=== PATIENT | male | born 1955 | race Caucasian/White ===

== ENCOUNTER 2019-01-18 23:42 | Emergency (ER) | payer SELFPAY ==
[2019-01-19] MEDS ORDERED: NA CHLORIDE 0.9% 1,000 ML ONE ×2 (00:11→04:29)
[2019-01-19 00:33] LABS: Absolute Lymphocytes (CBC) 2.9 K/uL (0.7-4.9); Absolute Neutrophil 7.4 K/uL (1.8-8.0); Basophils % 0.5 % (0-1.3); Eosinophils % 0.6 % (0-4.4); Lymphocytes % 25.6 % (15.3-44.8); MPV 8.8 fL (7.6-11.3); Monocytes % 8.4 % (3.3-12.3); RBC Red Blood Cell Count 5.97 M/uL (4.33-5.43)
[2019-01-19 00:40] LABS: Potassium 3.8 mmol/L (3.5-5.1)
[2019-01-19 01:41] LABS: Blood Morphology Comment NOTED (NOT SEEN); Hypochromasia 2+; Platelet Estimate ADEQ; Urine White Blood Cell Casts OK
[2019-01-19] MEDS ORDERED: LIDOCAINE 2% MPF 5 ML VIAL ONE (03:01)
[2019-01-19] MEDS ORDERED: ACETAMINOPHEN 325 MG TABLET ONE (04:29)
--- NOTE | 2019-01-19 07:26 | ER ---
Nurse's Notes [facility] Name: Sidney Calle Age: 63 yrs Sex: Male : 1955 Arrival Date: 01/18/2019 Time: 23:45 Bed 3 Private MD: Diagnosis: Abrasion of other part of head;Toxic effect of alcohol Presentation: 01/18 23:45 Presenting complaint: EMS states: Patient was drinking and felt on his right side. EMS ao notice a large hematoma in the right side. Patient was positive to LOC and denies blood thinner. Pt refused a collar by EMS. Care prior to arrival: None. Mechanism of Injury: Fall from standing position. Trauma event details: Injury occurred in the [facility]. 23:45 Method Of Arrival: EMS: [facility] ao 23:45 Acuity: GAVIN 2 ao 23:55 Transition of care: patient was not received from another setting of care. Onset of ao symptoms is unknown. Risk Assessment: Do you want to hurt yourself or someone else? Patient reports no desire to harm self or others. Initial Sepsis Screen: Does the patient meet any 2 criteria? No. Patient's initial sepsis screen is negative. Does the patient have a suspected source of infection? No. Patient's initial sepsis screen is negative. Trauma Activation: Physician: ED Physician; Name: Deandra; Notified At: ; Arrived At: Physician: General Surgeon; Name: ; Notified At: ; Arrived At: Physician: Radiology; Name: Kanika; Notified At: ; Arrived At: Physician: Respiratory; Name: ; Notified At: ; Arrived At: Physician: Lab; Name: ; Notified At: ; Arrived At: Historical: - Allergies: 23:52 No Known Allergies; ao - Home Meds: 23:52 None [Active]; ao - PMHx: 23:52 Hypertension; Bipolar disorder; ao - PSHx: 23:52 None; ao - Immunization history:: Adult Immunizations up to date. - Social history:: Smoking status: Patient uses tobacco products, denies chronic smoking, but will smoke occasionally, Patient uses alcohol, on a daily basis. Patient/guardian denies using street drugs, IV drugs. - Immunization history: Last tetanus immunization: unknown. - Ebola Screening: : Patient negative for fever greater than or equal to 101.5 degrees Fahrenheit, and additional compatible Ebola Virus Disease symptoms Patient denies exposure to infectious person Patient denies travel to an Ebola-affected area in the 21 days before illness onset. Screenin:54 Abuse screen: Denies threats or abuse. Denies injuries from another. Nutritional ao screening: No deficits noted. Tuberculosis screening: No symptoms or risk factors identified. Fall Risk Fall in past 12 months (25 points). No secondary diagnosis (0 pts). No IV (0 pts). Ambulatory Aid- None/Bed Rest/Nurse Assist (0 pts). Gait- Weak (10 pts.). Mental Status- Overestimates/Forgets Limitations (15 pts.). Primary Survey: 23:49 NO uncontrolled hemorrhage observed. A: The patient is alert. Airway: patent, No jd3 supplemental oxygen in use on arrival. Breathing/Chest: Respiratory pattern: regular, Respiratory effort: spontaneous, Breath sounds: clear, bilaterally. Chest inspection: symmetrical rise and fall of the chest. Circulation: Heart tones present. Skin color: pink, Skin temperature: warm. Disability Alert. Exposure/Environment: There is no evidence of uncontrolled external bleeding. Obvious injury(ies) are noted at this time: hematoma noted to top of head and abrasion noted to right elbow. A warming method has been applied: A warm blanket has been provided to the patient. 23:55 Reassessment Airway Airway Patent Breathing/Chest Respiratory pattern Regular ao Circulation Heart rhythm Sinus rhythm Disability Verbal stimuli. Secondary Survey: 23:52 HEENT: Head Other hematoma noted to top of head with dried blood noted. jd3 Gastrointestinal: No deficits noted. : No signs and/or symptoms were reported regarding the genitourinary system. Musculoskeletal: Circulation, motion, and sensation intact. Assessment: 23:55 General: Appears uncomfortable, Behavior is cooperative, drowsy, Smells of alcohol. jd3 Pain: Complains of pain in head Quality of pain is described as aching, tender. Neuro: Level of Consciousness is awake, confused, Oriented to person, place. Cardiovascular: Heart tones S1 S2 present Capillary refill < 3 seconds Patient's skin is warm and dry. Respiratory: Airway is patent Respiratory effort is even, unlabored, Respiratory pattern is regular, symmetrical, Breath sounds are clear bilaterally. GI: No signs and/or symptoms were reported involving the gastrointestinal system. : No signs and/or symptoms were reported regarding the genitourinary system. EENT: No signs and/or symptoms were reported regarding the EENT system. Derm: Skin is intact, Skin is dry, Skin is normal, Skin temperature is warm. Musculoskeletal: Circulation, motion, and sensation intact. 01/19 00:28 Reassessment: No changes from previously documented assessment. Patient and/or family jd3 updated on plan of care and expected duration. Pain level reassessed. 01:53 Reassessment: Patient appears in no apparent distress at this time. No changes from jd3 previously documented assessment. Patient and/or family updated on plan of care and expected duration. Pain level reassessed. 02:30 Reassessment: Patient appears in no apparent distress at this time. No changes from jd3 previously documented assessment. Patient and/or family updated on plan of care and expected duration. Pain level reassessed. 03:20 Reassessment: Patient appears in no apparent distress at this time. No changes from jd3 previously documented assessment. Patient and/or family updated on plan of care and expected duration. Pain level reassessed. 03:54 Reassessment: awaiting providers instruction and disposition. jd3 04:26 Reassessment: Patient appears in no apparent distress at this time. No changes from jd3 previously documented assessment. Patient and/or family updated on plan of care and expected duration. Pain level reassessed. Patient is alert, oriented x 3, equal unlabored respirations, skin warm/dry/pink. 05:29 Reassessment: Patient appears in no apparent distress at this time. Patient and/or jd3 family updated on plan of care and expected duration. Pain level reassessed. Patient is alert, oriented x 3, equal unlabored respirations, skin warm/dry/pink. 06:03 Reassessment: Patient appears in no apparent distress at this time. Patient and/or jd3 family updated on plan of care and expected duration. Pain level reassessed. Patient is alert, oriented x 3, equal unlabored respirations, skin warm/dry/pink. pt resting with eyes closed, even and unlabored respirations. awaiting orders and disposition. 06:53 Reassessment: Patient appears in no apparent distress at this time. No changes from jd3 previously documented assessment. Patient and/or family updated on plan of care and expected duration. Pain level reassessed. Patient is alert, oriented x 3, equal unlabored respirations, skin warm/dry/pink. 07:10 General: Appears in no apparent distress. comfortable, Behavior is calm, cooperative. sv Pain: Denies pain. Neuro: Level of Consciousness is awake, alert, obeys commands, Oriented to person, place, time, situation. Respiratory: Respiratory effort is even, unlabored, Respiratory pattern is regular, symmetrical. Injury Description: Abrasion sustained to right frontal area is scabbed. 07:28 Reassessment: Pt ambulatory with no distress noted. sv 07:36 Reassessment: Called and spoke with Missy at [phone] that pt is ready to be sv discharged. She will be coming to pick him up. Vital Signs: 01/18 23:52 BP 140 / 85; Pulse 91; Resp 18; Temp 98.2(O); Pulse Ox 95% on R/A; Weight 86.18 kg; ao Height 5 ft. 2 in. (157.48 cm); 01/19 00:28 BP 138 / 81; Pulse 81; Resp 17 S; Pulse Ox 95% on R/A; jd3 01:00 BP 156 / 85; Pulse 77; Resp 17 S; Pulse Ox 95% on R/A; jd3 02:18 BP 138 / 81; Pulse 84; Resp 16 S; Pulse Ox 95% on R/A; jd3 03:20 BP 153 / 84; Pulse 74; Resp 16 S; Pulse Ox 96% on R/A; jd3 04:26 BP 132 / 75; Pulse 70; Resp 16 S; Pulse Ox 95% on R/A; jd3 05:29 BP 142 / 77; Pulse 68; Resp 18 S; Pulse Ox 95% on R/A; jd3 06:04 BP 172 / 69; Pulse 68; Resp 15 S; Pulse Ox 95% on R/A; jd3 06:53 BP 136 / 70; Pulse 66; Resp 17 S; Pulse Ox 95% on R/A; jd3 07:18 BP 146 / 83; Pulse 72; Resp 16; Pulse Ox 96% ; Pain 0/10; sv 01/18 23:52 Body Mass Index 34.75 (86.18 kg, 157.48 cm) ao Estela Coma Score: 01/18 23:54 Eye Response: spontaneous(4). Verbal Response: confused(4). Motor Response: localizes ao pain(5). Total: 13. Trauma Score (Adult): 23:54 Eye Response: to voice(0); Verbal Response: confused(1); Motor Response: obeys ao commands(2); Systolic BP: > 89 mm Hg(4); Respiratory Rate: 10 to 29 per min(4); Estela Score: 13; Trauma Score: 11 ED Course: 23:45 Patient arrived in ED. ao 23:48 Andrea Schulz RN is Primary Nurse. jd3 23:51 Triage completed. ao 23:52 Sidney Liriano MD is Attending Physician. gs 23:55 Arm band placed on right wrist. Patient placed in an exam room, on a stretcher, on ao pulse oximetry. 23:56 Patient has correct armband on for positive identification. Pulse ox on. NIBP on. ao 23:56 Patient maintains SpO2 saturation greater than 95% on room air. ao 23:56 Thermoregulation: warm blanket given to patient. ao 03/09 00:[address] via stretcher. kw1 00:18 CT Head C Spine In Process Unspecified. EDMS 00:25 Inserted saline lock: 20 gauge in left forearm, using aseptic technique. Blood ao collected. 07:04 Report given to Roseann NGUYEN. jd3 07:20 Primary Nurse role handed off by Andrea Schulz RN sv 07:20 Roseann Naranjo RN is Primary Nurse. sv 07:48 No provider procedures requiring assistance completed. IV discontinued, intact, sv bleeding controlled, No redness/swelling at site. Pressure dressing applied. Administered Medications: 00:22 Drug: NS 0.9% 1000 ml Route: IV; Rate: 1 bolus; Site: left forearm; ao 04:25 Follow up: Response: No adverse reaction; IV Status: Completed infusion jd3 04:25 Drug: Tylenol 650 mg Route: PO; jd3 05:25 Follow up: Response: No adverse reaction jd3 04:25 Drug: NS 0.9% 1000 ml Route: IV; Rate: 1 bolus; Site: left antecubital; jd3 05:55 Follow up: Response: No adverse reaction; IV Status: Completed infusion jd3 07:30 Not Given (Physician Discretion): Lidocaine (2 %) 5 mg Infiltration once sv Intake: 07:28 PO: 0ml; Total: 0ml. sv Output: 07:28 Urine: 400ml (Voided); Total: 400ml. sv Outcome: 07:25 Discharge ordered by . rachel 07:49 Patient's length of stay in the Emergency Department was greater than 2 hours. due to sv pt not being discharged d/t intoxication.Patient's length of stay extended due to 07:56 Discharged to home via wheelchair, with family, Missy here to take him home. sv 07:56 Condition: stable 07:56 Discharge instructions given to patient, Instructed on discharge instructions, follow up and referral plans. Demonstrated understanding of instructions, follow-up care. 07:57 Patient left the ED. sv Signatures: Dispatcher [employer] Roseann Blanton RN RN sv Ortiz, Alex, RN RN ao Starr, Gregory, MD MD gs Davies, Jonathon RN RN Mine Pantoja1 Corrections: (The following items were deleted from the chart) 00:05 03/08 23:45 Acuity: GAVIN 3 ao ao
--- NOTE | 2019-01-19 07:26 | EDPHYS ---
Physician Documentation [facility] Name: Sidney Calle Age: 63 yrs Sex: Male : 1955 Arrival Date: 01/18/2019 Time: 23:45 Bed 3 Private MD: ED Physician Sidney Liriano HPI: 01/19 05:44 This 63 yrs old Male presents to ER via EMS with complaints of Fall Injury. gs 05:44 Details of fall: The patient fell from an upright position, while standing. Onset: The gs symptoms/episode began/occurred acutely, just prior to arrival. Associated injuries: The patient sustained injury to the head, laceration, 0.5 cm(s). Severity of symptoms: At their worst the symptoms were moderate, in the emergency department the symptoms are unchanged. The patient has experienced similar episodes in the past, a few times. recently out of assisted heavy drinking tonite passed out hit head currently intoxicated. Historical: - Allergies: 01/18 23:52 No Known Allergies; ao - Home Meds: 23:52 None [Active]; ao - PMHx: 23:52 Hypertension; Bipolar disorder; ao - PSHx: 23:52 None; ao - Immunization history:: Adult Immunizations up to date. - Social history:: Smoking status: Patient uses tobacco products, denies chronic smoking, but will smoke occasionally, Patient uses alcohol, on a daily basis. Patient/guardian denies using street drugs, IV drugs. - Immunization history: Last tetanus immunization: unknown. - Ebola Screening: : Patient negative for fever greater than or equal to 101.5 degrees Fahrenheit, and additional compatible Ebola Virus Disease symptoms Patient denies exposure to infectious person Patient denies travel to an Ebola-affected area in the 21 days before illness onset. ROS: 01/19 05:44 All other systems are negative. gs Exam: 05:44 Eyes: Pupils equal round and reactive to light, extra-ocular motions intact. Lids and gs lashes normal. Conjunctiva and sclera are non-icteric and not injected. Cornea within normal limits. Periorbital areas with no swelling, redness, or edema. ENT: Nares patent. No nasal discharge, no septal abnormalities noted. Tympanic membranes are normal and external auditory canals are clear. Oropharynx with no redness, swelling, or masses, exudates, or evidence of obstruction, uvula midline. Mucous membranes moist. Neck: Trachea midline, no thyromegaly or masses palpated, and no cervical lymphadenopathy. Supple, full range of motion without nuchal rigidity, or vertebral point tenderness. No Meningismus. Chest/axilla: Normal chest wall appearance and motion. Nontender with no deformity. No lesions are appreciated. Cardiovascular: Regular rate and rhythm with a normal S1 and S2. No gallops, murmurs, or rubs. Normal PMI, no JVD. No pulse deficits. Respiratory: Lungs have equal breath sounds bilaterally, clear to auscultation and percussion. No rales, rhonchi or wheezes noted. No increased work of breathing, no retractions or nasal flaring. Abdomen/GI: Soft, non-tender, with normal bowel sounds. No distension or tympany. No guarding or rebound. No evidence of tenderness throughout. Back: No spinal tenderness. No costovertebral tenderness. Full range of motion. Skin: Warm, dry with normal turgor. Normal color with no rashes, no lesions, and no evidence of cellulitis. MS/ Extremity: Pulses equal, no cyanosis. Neurovascular intact. Full, normal range of motion. Neuro: Awake and alert, GCS 15, oriented to person, place, time, and situation. Cranial nerves II-XII grossly intact. Motor strength 5/5 in all extremities. Sensory grossly intact. Cerebellar exam normal. Normal gait. 05:44 Constitutional: The patient appears awake, smells of alcohol, ETOH. 05:44 Head/face: Noted is a laceration(s), that is superficial, 0.5 cm(s), of the right temporal area. Vital Signs: 01/18 23:52 BP 140 / 85; Pulse 91; Resp 18; Temp 98.2(O); Pulse Ox 95% on R/A; Weight 86.18 kg; ao Height 5 ft. 2 in. (157.48 cm); 01/19 00:28 BP 138 / 81; Pulse 81; Resp 17 S; Pulse Ox 95% on R/A; jd3 01:00 BP 156 / 85; Pulse 77; Resp 17 S; Pulse Ox 95% on R/A; jd3 02:18 BP 138 / 81; Pulse 84; Resp 16 S; Pulse Ox 95% on R/A; jd3 03:20 BP 153 / 84; Pulse 74; Resp 16 S; Pulse Ox 96% on R/A; jd3 04:26 BP 132 / 75; Pulse 70; Resp 16 S; Pulse Ox 95% on R/A; jd3 05:29 BP 142 / 77; Pulse 68; Resp 18 S; Pulse Ox 95% on R/A; jd3 06:04 BP 172 / 69; Pulse 68; Resp 15 S; Pulse Ox 95% on R/A; jd3 06:53 BP 136 / 70; Pulse 66; Resp 17 S; Pulse Ox 95% on R/A; jd3 07:18 BP 146 / 83; Pulse 72; Resp 16; Pulse Ox 96% ; Pain 0/10; sv 01/18 23:52 Body Mass Index 34.75 (86.18 kg, 157.48 cm) ao Bylas Coma Score: 01/18 23:54 Eye Response: spontaneous(4). Verbal Response: confused(4). Motor Response: localizes ao pain(5). Total: 13. Trauma Score (Adult): 23:54 Eye Response: to voice(0); Verbal Response: confused(1); Motor Response: obeys ao commands(2); Systolic BP: > 89 mm Hg(4); Respiratory Rate: 10 to 29 per min(4); Estela Score: 13; Trauma Score: 11 MDM: 23:52 Patient medically screened. 01/19 07:24 Differential diagnosis: abrasion, closed head injury, laceration. Data reviewed: vital gs signs, nurses notes. Counseling: I had a detailed discussion with the patient and/or guardian regarding: the historical points, exam findings, and any diagnostic results supporting the discharge/admit diagnosis, the need for outpatient follow up. Response to treatment: the patient's symptoms have markedly improved after treatment, and as a result, I will discharge patient. 01/18 23:53 Order name: CBC with Diff; Complete Time: 02:09 01/18 23:53 Order name: Basic Metabolic Panel; Complete Time: 02: 01/18 23:53 Order name: CT Head C Spine 01/18 23:53 Order name: Alcohol Level; Complete Time: 02:09 01/19 01:22 Order name: CBC Smear Scan; Complete Time: 02:09 EDMS Administered Medications: 00:22 Drug: NS 0.9% 1000 ml Route: IV; Rate: 1 bolus; Site: left forearm; ao 04:25 Follow up: Response: No adverse reaction; IV Status: Completed infusion jd3 04:25 Drug: Tylenol 650 mg Route: PO; jd3 05:25 Follow up: Response: No adverse reaction jd3 04:25 Drug: NS 0.9% 1000 ml Route: IV; Rate: 1 bolus; Site: left antecubital; jd3 05:55 Follow up: Response: No adverse reaction; IV Status: Completed infusion jd3 07:30 Not Given (Physician Discretion): Lidocaine (2 %) 5 mg Infiltration once sv Disposition: 01/19/19 07:25 Discharged to Home. Impression: Abrasion of other part of head, Toxic effect of alcohol. - Condition is Stable. - Discharge Instructions: Alcohol Intoxication, Contusion, Abrasion, [id number]. - Medication Reconciliation Form, Thank You Letter, Antibiotic Education, Prescription Opioid Use form. - Follow up: Private Physician; When: 2 - 3 days; Reason: Re-evaluation by your physician. Signatures: Dispatcher [employer] Roseann Blanton RN RN sv Ortiz, Alex, RN RN ao Starr, Gregory, MD MD gs Davies, Jonathon, RN RN jd3 Corrections: (The following items were deleted from the chart) 07:57 07:25 01/19/2019 07:25 Discharged to Home. Impression: Abrasion of other part of head; sv Toxic effect of alcohol. Condition is Stable. Forms are Medication Reconciliation Form, Thank You Letter, Antibiotic Education, Prescription Opioid Use. Follow up: Private Physician; When: 2 - 3 days; Reason: Re-evaluation by your physician. gs
[2019-01-19 08:09] VITALS: TEMP 98.2
[2019-01-19 08:22] VITALS: BP 146/83; O2SAT 96
--- NOTE | 2019-01-21 11:17 | RAD REPORT ---
EXAM DESCRIPTION: CT - Head C Spine Mpr Wo Con - 01/19/2019 1:54 am CLINICAL HISTORY: The patient is 63 years old and is Male; PAIN TECHNIQUE: Axial computed tomography images of the head/brain and cervical spine without intravenous contrast. Sagittal and coronal reformatted images were created and reviewed. This CT exam was pe rformed using one or more of the following dose reduction techniques: automated exposure control, a djustment of the mA and/or kV according to patient size, and/or use of iterative reconstruction techn ique. COMPARISON: None. FINDINGS: BRAIN: Unremarkable. No hemorrhage. No significant white matter disease. No edema . VENTRICLES: The ventricular lung zones are clear. SKULL: No acute fracture. SINUSES: Scattered ethmoid opacification Mucosal thickening in the sphenoid sinuses. MASTOID AIR CELLS: Unremarkable as visualized. No mastoid effusion. VERTEBRAE: Vertebral body heights are maintained. Mild multilevel spondylosis. No acute fracture. Normal alignment. DISCS/SPINAL CANAL/NEURAL FORAMINA: Disc spaces are within normal limits. No spinal canal stenosis. SOFT TISSUES: Subcutaneous swelling and hematoma formation involving the right frontoparietal scal p. Thickening/calcification of the retrodental soft tissues. VASCULATURE: Cavernous carotid calcification. HYPOPHARYNX: Layering secretion in the hypopharynx. THYROID: Visualized thyroid is unremarkable. IMPRESSION: 1. Right frontotemporal scalp hematoma without underlying depressed skull fracture or acute intracranial abnormality. 2. No acute cervical spine fracture or subluxation. Electronically signed by: Michael Mercado DO 01/19/2019 12:34 AM [employer] DEVELOPER Due to temporary technical issues with the PACS/Fluency reporting system, reports are being signed by the in house radiologist as a courtesy to ensure prompt reporting. The interpreting radiologist is f ully responsible for the content of the report.
== END 2019-01-19 07:57 | disposition home or self-care (01) ==
LOC: ER 23:42
DX: S01.81XA Laceration without foreign body of other part of head, initial encounter (principal); T51.0X1A Toxic effect of ethanol, accidental (unintentional), initial encounter; W18.39XA Other fall on same level, initial encounter; Y93.89 Activity, other specified; Y92.9 Unspecified place or not applicable; Z72.0 Tobacco use; I10 Essential (primary) hypertension
CPT/HCPCS: 36415; 70450; 72125; 80048; 80320; 85025; 96360; 96361; 99285; J7030

== ENCOUNTER 2020-09-01 11:48 | Emergency (ER) | payer SELFPAY ==
--- OUTSIDE RECORDS SUMMARY | 2020-09-01 12:25 | XMS REPORT | Clinical Summary ---
:1955 Author Organization [facility] Address [facility] [place] [address] Care Team Providers Name Role Phone Syd Estes NP Primary Care Provider Allergies No Known Allergies Medications Medication Sig Dispensed Refills Start Date End Date Status vitamin A and D Apply to 113 g 0 12/27/2019 Act alexi ointmentIndicatio affected area ns: Dry skin as needed for dry skin. multivitamin Take 1 tablet 100 tablet 0 03/17/2020 A ctive tabletIndications by mouth : Nutrition daily. deficiency due to a particular kind of food therapeutic hand Apply to 240 mL 0 04/10/2020 Ac tive & body affected area (THERA-DERM) as needed lotionIndications (dry skin). : Dry skin lisinopriL Take 1 tablet 90 tablet 0 05/26/2020 Acti ve (PRINIVIL, by mouth ZESTRIL) 5 mg daily Deliver tabletIndications to [facility] : Medication [place]. refill tamsulosin Take 1 90 capsule 1 05/26/2020 Active (FLOMAX) 0.4 mg capsule by extended release mouth daily capsuleIndication Delivery to s: Decreased [facility] urine stream [place] [facility]. lamoTRIgine Take 1 tablet 180 tablet 1 05/28/2020 Ac tive (LAMICTAL) 25 mg by mouth 2 tabletIndications times daily : Bipolar ....[facility] disorder in [place] partial Alf.. remission, most recent episode unspecified type acetaminophen-cod Take 2 30 tablet 1 08/18/2020 A ctive eine tablets by (TYLENOL/CODEINE mouth every 6 #3) 300-30 mg per hours as tabletIndications needed for : Squamous cell Pain (severe carcinoma, trunk pain). mupirocin calcium Use daily 45 g 1 08/18/2020 A ctive (BACTROBAN) 2 % with dressing topical changes. creamIndications: Squamous cell carcinoma, trunk ibuprofen Take 1 tablet 30 tablet 1 08/18/2020 Activ e (MOTRIN) 800 mg by mouth tabletIndications every 8 hours : Squamous cell as needed for carcinoma, trunk Pain (mild pain). multivitamin Take 1 tablet 100 tablet 0 12/11/2019 D iscontinued tabletIndications by mouth 0 (R eorder) : Nutrition daily. deficiency due to a particular kind of food divalproex Take 500 mg 0 Discont inued (DEPAKOTE) 500 mg by mouth 2 0 ( Reorder) delayed release times daily. tabletIndications : Bipolar I disorder therapeutic hand Apply to 240 mL 0 12/27/2019 Di scontinued & body affected area 0 (Reord er) (THERA-DERM) as needed lotionIndications (dry skin). : Dry skin ferrous sulfate Take 1 tablet 100 tablet 0 01/06/2020 04/10/20 2 Discontinued 325 mg (65 mg by mouth 0 (Thera py iron) daily (with complete d) tabletIndications breakfast). : Iron deficiency anemia, unspecified iron deficiency anemia type docusate sodium Take 1 20 capsule 0 01/06/2020 Ex pired (COLACE) 100 mg capsule by 0 capsuleIndication mouth 2 times s: Drug-induced daily for 10 constipation days. divalproex Take 1 tablet 60 tablet 0 01/07/2020 Disc ontinued (DEPAKOTE) 500 mg by mouth 2 0 ( Therapy delayed release times daily. c ompleted) tabletIndications : Bipolar I disorder lisinopril Take 1 tablet 30 tablet 0 01/07/2020 Disc ontinued (PRINIVIL, by mouth 0 ZESTRIL) 5 mg daily. tabletIndications : Essential hypertension lisinopriL Take 0.5 30 tablet 0 01/15/2020 Disconti nued (PRINIVIL, tablets by 0 (Reorder ) ZESTRIL) 5 mg mouth daily. tabletIndications : Essential hypertension lamoTRIgine Take 1 tablet 60 tablet 1 01/28/2020 Dis continued (LAMICTAL) 25 mg by mouth 2 0 (R eorder) tabletIndications times daily : Bipolar for 60 days. disorder in partial remission, most recent episode unspecified type ibuprofen Take 1-2 30 tablet 0 02/05/2020 (MOTRIN) 400 mg tablets by 0 tabletIndications mouth every 8 : Chronic midline hours as low back pain needed for up without sciatica to 10 days for Pain. lamoTRIgine Take 1 tablet 60 tablet 0 02/05/2020 Dis continued (LAMICTAL) 25 mg by mouth 2 0 (R eorder) tabletIndications times daily : Bipolar ....[facility] disorder in [place] partial Alf.. remission, most recent episode unspecified type lisinopriL Take 0.5 30 tablet 0 02/05/2020 Disconti nued (PRINIVIL, tablets by 0 ZESTRIL) 5 mg mouth daily tabletIndications ....[facility] : Essential [place] hypertension Alf.. lisinopriL Take 1 tablet 30 tablet 0 02/24/2020 Disc ontinued (PRINIVIL, by mouth 0 (Reorder) ZESTRIL) 5 mg daily. tabletIndications : Essential hypertension tamsulosin Take 1 30 capsule 0 02/27/2020 Discont inued (FLOMAX) 0.4 mg capsule by 0 (Re order) extended release mouth daily. capsuleIndication s: Nocturia more than twice per night, Decreased urine stream lamoTRIgine Take 1 tablet 120 tablet 1 02/27/2020 Di scontinued (LAMICTAL) 25 mg by mouth 2 0 (R eorder) tabletIndications times daily : Bipolar ....[facility] disorder in [place] partial Alf.. remission, most recent episode unspecified type lisinopriL Take 1 tablet 30 tablet 0 03/17/2020 Disc ontinued (PRINIVIL, by mouth 0 (Reorder) ZESTRIL) 5 mg daily. tabletIndications : Essential hypertension tamsulosin Take 1 30 capsule 0 04/02/2020 Discont inued (FLOMAX) 0.4 mg capsule by 0 (Re order) extended release mouth daily. capsuleIndication s: Nocturia more than twice per night, Decreased urine stream lisinopriL Take 1 tablet 30 tablet 0 04/21/2020 Disc ontinued (PRINIVIL, by mouth 0 (Reorder) ZESTRIL) 5 mg daily. tabletIndications : Medication refill cephALEXin Take 1 40 capsule 0 04/21/2020 (KEFLEX) 500 mg capsule by 0 capsuleIndication mouth 4 times s: Infected daily for 10 sebaceous cyst of days. skin tamsulosin Take 1 30 capsule 0 05/11/2020 Discont inued (FLOMAX) 0.4 mg capsule by 0 (Re order) extended release mouth daily. capsuleIndication s: Decreased urine stream lisinopriL Take 1 tablet 30 tablet 0 05/26/2020 Disc ontinued (PRINIVIL, by mouth 0 (Reorder) ZESTRIL) 5 mg daily. tabletIndications : Medication refill lamoTRIgine Take 1 tablet 120 tablet 1 05/28/2020 Di scontinued (LAMICTAL) 25 mg by mouth 2 0 (R eorder) tabletIndications times daily : Bipolar ....[facility] disorder in [place] partial Alf.. remission, most recent episode unspecified type doxycycline Take 1 20 capsule 1 08/18/2020 d monohydrate capsule by 0 (MONODOX) 100 mg mouth 2 times capsuleIndication daily for 10 s: Squamous cell days. carcinoma, trunk Hospital, Clinic, or Other Ordered Dose Route Frequency Start Date End Date Status Facility Administered Medication povidone-iodine (BETADINE) 1 Application TP ONCE 0 08/18/2020 Ended 10 % topical applicator 1 Application Active Problems Problem Noted Date Follow up for COVID infection. 06/25/2020 Essential hypertension 02/24/2020 Homeless 12/11/2019 Mass of thigh, right 12/11/2019 Exercise counseling for Above Normal BMI Only! 020 Resolved Problems Problem Noted Date Resolved Date Cyst of soft tissue 12/11/2019 12/11/2019 Encounters Date Type Specialty Care Team Description 08/18/2020 Office Visit Dermatology Yoselin Robbins Squamous ce ll carcinoma, trunk (Primary Dx); MD Althea Neoplasm of [facility] ertain behavior of skin 07/28/2020 Office Visit Dermatology Echo Burr Neoplasm of uncertain behavior of skin (Primary Dx); MD Jaime Multiple benign melanocytic nevi; Lentigo 06/25/2020 [facility] Shanice Estes Follow up for COVID Encounter U, MACHINE PLUG SHAPER infection. ([place] Dx) 06/15/2020 Clinical Case Mgt Social Work Hattie Ayon, RN 06/11/2020 [facility] Bonita Gomez COVID-19 virus infection (Primary Dx); Encounter D, MACHINE PLUG SHAPER Homeless 06/09/2020 [facility] Gary Carrillo NO SHOW E NCOUNTER Encounter G, (Primary Dx) 06/09/2020 Office Visit Family Practice [facility] Des[facility] , [facility] (Primary Dx); MACHINE PLUG SHAPER Homeless 05/28/2020 [facility] Psych[facility] Joaquín Paul MD Bipolar disorde r in Encounter partial remissi on, most recent episode unspecified typ e 05/26/2020 [facility] EgShanice verduzco Medicatio n refill; Encounter U, MACHINE PLUG SHAPER Decreased urine stream 05/11/2020 [facility] Egdax Peace Decreased urine stream (Primary Dx); Encounter U, MACHINE PLUG SHAPER Homeless 05/06/2020 Office Visit Family Practice Egdax Peasophia Seborrhei c wart, upper U, MACHINE PLUG SHAPER back (Primary D x) 05/06/2020 Orders Only Family Practice Egbulefu, Peace U, MACHINE PLUG SHAPER 04/21/2020 Office Visit Family Practice Egdax Peace Infected sebaceous cyst of skin, upper back (Primary Dx); U, MACHINE PLUG SHAPER Medication refi ll; Laboratory test ,COVID screening result. 04/10/2020 Office Visit Family Practice Egdax Peace Hypertens ion, uncontrolled (Primary Dx); U, MACHINE PLUG SHAPER Dry skin; Dietary counselor education professor ing; Homeless 04/09/2020 Office Visit Family Practice Egdax Peasophia [facility]-COVID-19 (Primary Dx); U, MACHINE PLUG SHAPER Homeless 04/02/2020 [facility] Egnataliafu, Peace Iron defi ciency anemia, unspecified iron deficiency anemia type (Primary Dx); Encounter U, MACHINE PLUG SHAPER Nocturia more t romero twice per night; Decreased urine stream 03/26/2020 [facility] Psychiatry Joaquín Paul MD Mood disorder ( Primary Encounter Dx) 03/17/2020 [facility] Shanice Estes Essential hypertension; Encounter U, MACHINE PLUG SHAPER Nutrition defic iency due to a particular kind of food 03/09/2020 [facility] Shanice Estes Follow up on treatment Encounter U, MACHINE PLUG SHAPER for possible BP H. (Primary Dx) 02/28/2020 Nurse Only [facility] Shanice Estes Routine l ab draw (Primary Dx); U, MACHINE PLUG SHAPER Nocturia more than twice per night Jeane Stanley, Relief Mate 02/27/2020 [facility] Psychiatry Joaquín Paul MD Bipolar disorde r in Encounter partial remissi on, most recent episode unspecified typ e 02/27/2020 Office Visit [facility] Shanice Estes Nocturia more than twice per night (Primary Dx); U, MACHINE PLUG SHAPER Decreased urine stream 02/24/2020 Office Visit [facility] Shanice Estes Essential hypertension (Primary Dx); U, MACHINE PLUG SHAPER Bradycardia,asy mptomatic 02/05/2020 Office Visit Family Practice Shanice Estes Chronic m idline low U, MACHINE PLUG SHAPER back pain witho ut sciatica (Prima ry Dx) 02/05/2020 Orders Only Family Practice Shanice Estes Medicatio ns U, MACHINE PLUG SHAPER 02/04/2020 Orders Only Family Practice Gloria May MD 01/28/2020 Office Visit Psychiatry Adeline Linn R, Bipolar diso rder in partial remission, most recent episode unspecified type (Primary Dx); Alcohol use dis order, severe, in early remission 01/21/2020 Ancillary Radiology Mass of thigh, right Procedure 01/20/2020 Office Visit Dentistry Breonna Bower S/P tooth ex traction V, MACHINE PLUG SHAPER (Primary Dx) Johanna Benton, DDS 01/17/2020 Office Visit Family Practice Breonna Bower Essential hypertension (Primary Dx); V, MACHINE PLUG SHAPER Encounter for l aboratory examination; Homeless; Overweight (BMI 25.0-29.9); Dietary counselor education professor ing; Exercise counse ling; Tobacco abuse; Tobacco abuse c ounseling 01/16/2020 Office Visit Family Practice Breonna Bower Dental ca lyla (Primary Dx); V, MACHINE PLUG SHAPER Encounter for l aboratory examination; Homeless; Overweight (BMI 25.0-29.9); Dietary counselor education professor ing; Exercise counse ling 01/15/2020 Office Visit Family Practice Breonna Bower Well-cont rolled hypertension (Primary Dx); V, MACHINE PLUG SHAPER Homeless; Overweight (BMI 25.0-29.9); Dietary counselor education professor ing; Exercise counse ling; Essential hyper tension 01/08/2020 Nurse Only Family Practice Breonna Bower Routine l ab draw (Primary Dx); V, MACHINE PLUG SHAPER Hepatitis C virus infection without hepa tic coma, unspecified chronicity Jeane Stanley Relief Mate 01/07/2020 Office Visit Family Practice Breonna Bower Hepatitis C virus infection without hepatic coma, unspecified chronicity (Primary Dx); V, MACHINE PLUG SHAPER Encounter for l aboratory examination; Pre-diabetes; Bipolar I disor veronica; Homeless; Bradycardia; Overweight (BMI 25.0-29.9); Dietary counselor education professor ing; Exercise counse ling; Essential hyper tension 01/06/2020 Office Visit Family Practice Bonita Gomez Iron def iciency anemia, unspecified iron deficiency anemia type (Primary Dx); D, MACHINE PLUG SHAPER Encounter for laboratory examination; Breonna Bower Routine lab draw; V, MACHINE PLUG SHAPER Drug-induced co nstipation; Bradycardia; Overweight (BMI 25.0-29.9); Dietary counselor education professor ing; Exercise counse tre; Homeless 01/02/2020 Therapy Psychology Darden, Mood disorder ( Primary Yahaira Dx) 01/01/2020 Nurse Only Family Practice Shanice Estes Routine l ab draw (Primary Dx); U, MACHINE PLUG SHAPER Annual physical exam; Jeane Stanley Need for hepat itis C screening test Cory Johnston 12/27/2019 Office Visit Family Practice Bonita Gomez Dry skin (Primary Dx); D, MACHINE PLUG SHAPER Overweight (BMI 25.0-29.9); Homeless; Health educatio n 12/27/2019 Orders Only Family Practice Bonita Gomez D, MACHINE PLUG SHAPER 12/24/2019 Office Visit Family Practice Shanice Estes Lipoma of right lower U, MACHINE PLUG SHAPER extremity (Prim leonor Dx) 12/13/2019 Office Visit Family Practice Shanice Estes Annual ph ysical exam (Primary Dx); U, MACHINE PLUG SHAPER Elevated blood pressure reading without diagnosis of hypertension; Bipolar I disor veronica; Need for hepati tis C screening test; Influenza vacci ne refused 12/13/2019 Orders Only Family Practice Shanice Estes U MACHINE PLUG SHAPER 12/11/2019 Office Visit Family Practice Shanice Estes Mass of t high, right (Primary Dx); U, MACHINE PLUG SHAPER Tooth decayed; Influenza vacci nation declined by patient; Screening for H IV (human immunodeficiency virus); Screen for colo n cancer; Dietary counselor education professor ing for Above / Below Normal BMI; Exercise counse ling for Above Normal BMI Only!; Nutrition defic iency due to a particular kind of food; Homeless 12/11/2019 Orders Only Family Practice Shanice Estes MACHINE PLUG SHAPER after 09/01/2019 Immunizations Name Administration Dates Next Due Influenza, 12/13/2019 (Deferred: Patient Refused) Vaccine<FLUCELVAX>(Multi-Dose) Family History Relation Name Status Comments Brother Alive Father Mother Sister Alive Social History Tobacco Use Types Packs/Day Years Used Date Current Some Day Smoker Cigarettes 10 Quit : 11/28/2019 Smokeless Tobacco: Never Used Tobacco Cessation: Ready to Quit: No; Co unseling Given: Yes Alcohol Use Drinks/Week oz/Week Comments Yes Last time used 0 11/18/2019 Food Insecurity Answer Date Recorded Within the past 12 months, you worried that your food would Never true 12/11/2019 run out before you got money to buy more. Within the past 12 months, the food you bought just didn't N ever true 12/11/2019 last and you didn't have money to get more. Sex Assigned at Date Recorded Not on file Job Start Date Occupation Industry Not on file Not on file Not on file Travel History Travel Start Travel End No recent travel history available. COVID-19 Exposure Response Date Recorded In the last month, have you been in contact with No / Unsure 08/18/2020 9:50 AM CDT someone who was confirmed or suspected to have Coronavirus / COVID-19? Last Filed Vital Signs Vital Sign Reading Time Taken Comments Blood Pressure 114/59 05/06/2020 2:30 PM CDT Pulse 66 05/06/2020 2:30 PM CDT Temperature 37 C (98.6 F) 05/06/2020 2:30 PM CDT Respiratory Rate 19 05/06/2020 2:30 PM CDT Oxygen Saturation - - Inhaled Oxygen Concentration - - Weight 105.2 kg (232 lb) 08/18/2020 11:40 AM CDT Height 180.3 cm (5' 11") 08/18/2020 11:40 AM CDT Body Mass Index 32.36 08/18/2020 11:40 AM CDT Plan of Treatment Health Maintenance Due Date Last Done Comments Colorectal Cancer Scrn Annual (FIT/FOBT) Age 50 to 75 12/11/2020 12/11/2019 Goals Goal Patient Goal Associated Recent Patient-Stated? Author Type Problems Progress Obtain more Lifestyle Jeane Stone stable housing [place], robert Relief Mate Procedures Procedure Name Priority Date/Time Associated Diagnosis Comme nts TISSUE EXAM Routine 08/18/2020 12:31 Neoplasm of uncertain Re sults for this PM CDT behavior of skin procedure a re in the results section. CORONAVIRUS, STAT 06/09/2020 9:41 Preventative health care Results for this COVID-19, ([facility]) AM CDT procedur e are in the results section. CORONAVIRUS, STAT 04/09/2020 9:54 Preventative health Resu lts for this COVID-19, ([facility]) AM CDT [id number] procedu re are in the results section. URINALYSIS Routine 02/28/2020 8:30 Nocturia more than twice Results for this AM CDT per night procedure are i n the results section. BASIC METABOLIC Routine 02/28/2020 8:30 Nocturia more than tw ice Results for this PANEL AM CDT per night procedure are i n the results section. HEMOGLOBIN A1C Routine 02/28/2020 8:30 Nocturia more than twi ce Results for this AM CDT per night procedure are i n the results section. URINALYSIS Routine 02/28/2020 8:30 Nocturia more than twice Results for this AM CDT per night procedure are i n the results section. PROSTATE SPECIFIC Routine 02/28/2020 8:30 Nocturia more than twice Results for this ANTIGEN (PSA) AM CDT per night procedure are in the results section. U/S EXTREMITY Routine 01/21/2020 10:39 Mass of thigh, right Re sults for this NONVASCULAR, AM CDT procedure are i n COMPLETE the results section. HEPATITIS C Routine 01/08/2020 10:53 Hepatitis C virus Result s for this GENOTYPE AM DELIVERY ROOM CLERK infection without procedure are in hepatic coma, the results unspecified chronicity secti on. PT/INR/PTT Routine 01/08/2020 10:53 Hepatitis C virus Result s for this AM DELIVERY ROOM CLERK infection without procedure are in hepatic coma, the results unspecified chronicity secti on. DEANNA Routine 01/08/2020 10:53 Hepatitis C virus Result s for this AM DELIVERY ROOM CLERK infection without procedure are in hepatic coma, the results unspecified chronicity secti on. HEMOGLOBIN A1C Routine 01/06/2020 10:39 Routine lab draw Resul ts for this AM DELIVERY ROOM CLERK procedure are i n the results section. HCV RNA QUANT, PCR Routine 01/06/2020 10:09 Need for hepatitis C Results for this AM DELIVERY ROOM CLERK screening test procedure are in the results section. HEPATITIS PANEL Routine 01/06/2020 10:09 Need for hepatitis C Results for this AM DELIVERY ROOM CLERK screening test procedure are in the results section. CBC Routine 01/01/2020 8:24 Annual physical exam Res ults for this AM DELIVERY ROOM CLERK procedure are i n the results section. THYROID STIMULATING Routine 01/01/2020 8:24 Annual physical e xam Results for this HORMONE (TSH) AM DELIVERY ROOM CLERK procedure are in the results section. CBC/DIFF Routine 01/01/2020 8:24 Annual physical exam Res ults for this AM DELIVERY ROOM CLERK procedure are i n the results section. LIVER PROFILE Routine 01/01/2020 8:24 Annual physical exam Re sults for this AM DELIVERY ROOM CLERK procedure are i n the results section. BASIC METABOLIC Routine 01/01/2020 8:24 Annual physical exam Results for this PANEL AM DELIVERY ROOM CLERK procedure are i n the results section. LIPID PROFILE Routine 01/01/2020 8:24 Annual physical exam Re sults for this AM DELIVERY ROOM CLERK procedure are i n the results section. FECAL OCCULT BLOOD Routine 12/11/2019 11:04 Screen for colon c ancer Results for this AM DELIVERY ROOM CLERK procedure are i n the results section. GLUCOSE POC Routine 12/11/2019 9:38 Nutrition deficiency due Results for this AM DELIVERY ROOM CLERK to a particular kind of proc edure are in food the results section. POC RAPID HIV Routine 12/11/2019 9:38 Screening for HIV (rodolfo n Results for this AM DELIVERY ROOM CLERK immunodeficiency virus) proc edure are in the results section. after 09/01/2019 Results Pathology - Tissue Exam (08/18/2020 12:31 PM CDT) Pathologist Sig nature Case Report Surgical Pathology Case: [id number] [facility] Authorizing Provider: Yoselin Galdamez MD Collected: 08/18/2020 12:31 PM Ordering Location: Dermatology Clinic Received: 08/18/2020 12:47 PM Pathologist: Dilma Ventura MD Specimen: Other (Specif y in Comments) FINAL DIAGNOSIS A. SKIN, RIGHT MIDLINE UPPER BACK, EXCISION [facility] Electronically signed - WELL DIFFERENTIATED SQUAMOUS CELL CARCINOMA, C LEAR SURGICAL MARGINS by Dilma Ventura MD on 0 at 2:11 PM Clinical SCC [facility] Impression Gross Description The specimen is received in one part, fresh, and subsequently placed in formalin, labeled with the patient s name and medical record number, and TISSUE , is a skin ellipse that measures 7.1 cm in [facility] length x 3.6 cm in width, c ut to a depth of 0.9 cm. There is a suture on one of the tips. The suture is designated by the pathology grossing resident as 12 o'clock. There is a white-trujillo, focally hem orrhagic mass on the skin th at measures 3.2 x 2.1 x 1.3 cm. The mass is located within 0.9 cm from the 3 o'clock margin, 0.4 cm from the 9 o'clock margin, and 2.1 cm from both tips. The specimen is inked as follows: 12-3 o'clock = red 3-6 o'clock = green 6-9 o'clock = blue Deep margin = black The specimen is sectioned fr om 12-6 o'clock to reveal the mass extends to within 0.1 cm from the deep margin. Section Code: A1: both tips A2-A3: one section, dissected A4-A5: one section, dissected A6-A7: one slice, dissected Nitin Dupree / [id number] Pathology Resident Microscopic Performed [facility] Description Specimen Tissue - Other (Specify in Comments) Performing Organization Address City/State/Zipcode Phone Number [facility] [address] [place] [address] Coronavirus, CoVID-19, ALFREDO ([facility]) (06/09/2020 9:41 AM CDT)Only the most recent of2 resultswithin the time period is included. CoVID-19 Detected (A) Not Detected BT [facility] (SARS-CoV-2) Comment: Client Requested Flag Testing was performed using the [employer]ptima SARS-CoV-2 assa y. This test was developed and its performance characteri stics determined by [facility]. This test has not been FDA cl eared or approved. This test has been authorized by FDA under a n Emergency Use Authorization (EUA). This test is only authorized for the duration of time the declaration that circumstances exist justifyi ng the authorization of the emergency use of in vitro diagnos tic tests for detection of SARS-CoV-2 virus and/or diagnosis of COVI D-19 infection under section 564(b)(1) of the Act, 21 U.S.C. 360bbb-3 (b)(1), unless the authorization is terminated or revoked sooner. When diagnostic testing is negative, the possibility o f a false negative result should be considered in the context of a patient's recent exposures and the presence of clinical signs an d symptoms consistent with COVID-19. An individual without sympto ms of COVID-19 and who is not shedding SARS-CoV-2 virus would expect to have a negative (not detected) result in this assay. Specimen Other (Specify in Comments) - Nasopharyn x Narrative Performed At Performed at: [facility] [address] [place], [place] [id number] 143 Contact Lens Flashing Puncher: Jose Roberto Blevins MD, Phone: [phone] Performing Organization Address [facility] Phone Number [facility] [address] [place] [address] Urinalysis (02/28/2020 8:30 AM CDT) Pathologist Sig nature Color Yellow Colorless, Straw, [facility] Yellow Clarity Clear Clear [facility] Spec [place], Ur 1.015 1.001 - 1.035 [facility] pH, Ur 6.0 5.0 - 8.0 [facility] Protein, Ur Negative Negative mg/dL [facility] Glucose, Ur Negative Negative mg/dL [facility] Ketone, Ur Negative Negative mg/dL [facility] Bilirubin, Ur Negative Negative mg/dL [facility] Nitrite, Ur Negative Negative [facility] Leukocyte Negative Negative mg/dL [facility] Blood, Ur Negative Negative mg/dL [facility] Urobilinogen, Ur <1.0 <1.0 EU/dL [facility] Specimen Urine - Clean Catch Mid Stream Performing Organization Address [facility] Phone Number [facility] [address] [place], [place] [id number] Hemoglobin A1C (02/28/2020 8:30 AM CDT)Only the most recent of2 resultswithin the time period is included. Pathologist Sig nature Hemoglobin A1c 6.4 (H) 4.3 - 6.1 % [facility] Estimated Average 137 (H) 70 - 110 mg/dL [facility] Glucose Specimen Blood - Arm, left Performing Organization Address [facility] Phone Number [facility] [address] [place], [place] [id number] PSA (02/28/2020 8:30 AM CDT) Pathologist Sig nature PSA 0.680 <=4.000 ng/mL [facility] Specimen Blood - Arm, left Performing Organization Address [facility] Phone Number [facility] [address] [place], [place] [id number] [phone] Basic Metabolic Panel (02/28/2020 8:30 AM CDT)Only the most recent of2 results within the time period is included. Pathologist Sig nature Sodium 137 136 - 145 mmol/L [facility] Potassium 4.6 3.5 - 5.1 mmol/L [facility] Chloride 103 98 - 107 mmol/L [facility] CO2 27 21 - 31 mmol/L [facility] Urea Nitrogen 14.0 7.0 - 25.0 mg/dL [facility] Creatinine 0.7 0.7 - 1.3 mg/dL [facility] Glucose 132 (H) 70 - 110 mg/dL [facility] Calcium 9.3 8.6 - 10.3 mg/dL [facility] GFR, Estimated >90 >=90 mL/min/1.73 m2 [facility] Anion Gap 7 5 - 16 mmol/L [facility] Specimen Blood - Arm, left Performing Organization Address [facility] Phone Number [facility] [address] [place], [place] [phone] U/S EXTREMITY NONVASCULAR, COMPLETE (01/21/2020 10:39 AM CDT) Specimen Impressions Performed At IMPRESSION: SMS 5.3 cm right upper, anterior thigh lipom a. Dictated By: Xavier Davis MD, 10:40 AM I have reviewed the study and agree with the findings in this report. Signed By: Solomon Ferreira MD, 01/21/2020 1:27 AM Narrative Performed At EXAM: U/S EXTREMITY NONVASCULAR, COMPLET E SMS INDICATION: nontender soft mass, thig h, right anterior COMPARISON: None TECHNIQUE: Transverse and sagittal image s were performed of the right upper thigh. FINDINGS: Subcutaneous 5.2 x 1.5 x 5.3 cm, oblong- shaped encapsulated mass with fine linear striations parallel to the s kin and absent internal vascularity on color Doppler at the righ t upper, anterior thigh. Procedure Note Interface, Rad/Mammog In - 01/21/2020 11 :32 AM CDT EXAM: U/S EXTREMITY NONVASCULAR, COMPLETE INDICATION: nontender soft mass, thigh , right anterior COMPARISON: None TECHNIQUE: Transverse and sagittal image s were performed of the right upper thigh. FINDINGS: Subcutaneous 5.2 x 1.5 x 5.3 cm, oblong- shaped encapsulated mass with fine linear striations parallel to the s kin and absent internal vascularity on color Doppler at the righ t upper, anterior thigh. IMPRESSION IMPRESSION: 5.3 cm right upper, anterior thigh lipom a. Dictated By: Xavier Davis MD, 10:40 AM I have reviewed the study and agree with the findings in this report. Signed By: Solomon Ferreira MD, 01/21/2020 1 1:27 AM Performing Organization Address City/State/Zipcode Phone Number [facility] Hepatitis C Genotype (01/08/2020 10:53 AM DELIVERY ROOM CLERK) Pathologist Sig nature HCV Detected Detected (A) Not detected [facility] HCV Genotype Genotype 1a [facility] Specimen Blood - Arm, left Narrative Performed At This test utilizes the Wize solid-phase [facility] electrochemical array for genotyping of the hepatitis C virus. This test was developed and its performance characte ristics determined by the [facility] laboratory at [facility]. It has not been cleared or approved by the U.S.Food and Drug Administration (FDA), however, it has been de termined that approval is not necessary as this laboratory is regulated under CLIA as qualified to perform this type of high-c omplexity testing. This test is used for clinical purposes and trudi sullivan not be regarded as investigational or for re search. Performing Organization Address [facility] Phone Number [facility] [address] [place] [address] PT/INR/PTT (01/08/2020 10:53 AM DELIVERY ROOM CLERK) PT 13.3 11.8 - 15.0 [facility] INR 1.0 Refer to INR [facility] Comment: ranges LABORATORY 2.0 - 3.0 for moderate intensity anticoagulation 2.5 - 3.5 for high intensity anticoagulation PTT 28.0 23.6 - 36.4 [facility] Comment: [facility] The recommended therapuetic range is an APTT 61-103 seconds which corresponds to 0.3-0.7 anti Xa u/ml. Specimen Blood - Arm, left Performing Organization Address [facility] Phone Number [facility] [address] [place] [address] DEANNA (01/08/2020 10:53 AM DELIVERY ROOM CLERK) Pathologist Sig nature DEANNA Screen Negative Negative [facility] Specimen Blood - Arm, left Performing Organization Address [facility] Phone Number [facility] [address] [place] [phone] HCV RNA Quantitative, PCR (01/06/2020 10:09 AM DELIVERY ROOM CLERK) Pathologist [facility] HCV RNA Quant, PCR Detected (A) Not detected [facility] IU/mL LABORATORY HCV RNA QUANT, PCR [id number] (H) <=0 IU/mL [facility] Specimen Blood Narrative Performed At This test utilizes FDA cleared AMANDA AmpliPrep/AMANDA T aqMan HCV [facility] test, v2.0 from [employer] which all ows quantitation of viral loads between 15 copies/mL and 1 0,000,000 of plasma. When the result is positive but <15 copies/ mL of HCV RNA, the test will be reported as detected but less th an 15 copies/mL". The AMANDA AmpliPrep/ AMANDA TaqMan HCV test , v2.0 is not intended for use as a screening test for the prese nce of HCV RNA in blood or as a diagnostic test to confirm the pr esence of HCV infection. This test is intended for use as an aid in the management of patients with HCV infection. Performing Organization Address [facility]/Zipcode Phone Number [facility] [address] [place] [address] Hepatitis Panel (01/06/2020 10:09 AM DELIVERY ROOM CLERK) Pathologist Sig nature Hepatitis C Virus Positive (A) Negative [facility] (HCV) Antibody Hep B Surface Ag Negative Negative [facility] Hep A Vir Ab IgM Negative Negative [facility] Hep B Core Ab IgM Negative Negative [facility] Specimen Blood - Arm, left Performing Organization Address [facility] Phone Number [facility] [address] [place] [address] CBC/Diff (01/01/2020 8:24 AM DELIVERY ROOM CLERK) WBC 7.3 4.5 - 12.0 [facility] K/uL [facility] RBC 6.13 4.60 - 6.20 [facility] M/uL [facility] Hemoglobin 12.5 (L) 14.0 - 18.0 [facility] g/dL [facility] Hematocrit 39.5 (L) 40.0 - 54.0 % [facility] MCV 64.4 (L) 82.0 - 92.0 [facility] fL [facility] MCH 20.4 (L) 27.0 - 31.0 [facility] pg [facility] MCHC 31.6 (L) 32.0 - 36.0 [facility] g/dL [facility]ORY RDW 38.5 35.1 - 43.9 [facility] fL [facility] Platelet 174 150 - 400 [facility] K/uL [facility] Mean Platelet Volume Comment: Not [facility] measured. [facility]ORATORY Percent NRBC 0.0 % [facility] Neutrophil 57.6 34.0 - 67.9 % [facility] Lymphs 26.8 21.8 - 50.0 % [facility] Monocytes 12.8 (H) 5.3 - 12.0 % [facility] Eos 2.0 0.8 - 5.0 % [facility] Basos 0.5 0.2 - 1.2 % [facility] Immature Granulocytes 0.3 0.0 - 0.5 % [facility] Neutrophils 4.21 1.78 - 5.36 [facility] (Absolute) K/uL [facility]ORY Lymphs (Absolute) 1.96 1.32 - 3.57 [facility] K/uL [facility] Monocytes(Absolute) 0.94 (H) 0.30 - 0.82 [facility] K/uL [facility] Eos (Absolute) 0.15 0.04 - 0.54 [facility] K/uL [facility] Baso (Absolute) 0.04 0.01 - 0.08 [facility] K/uL [facility] Immature Grans (Abs) 0.02 0.00 - 0.03 [facility] K/uL [facility] Absolute NRBC 0.00 K/uL [facility] Specimen Blood - Arm, left Performing Organization Address [facility] Phone Number [facility] [address] [place] [address] TSH [Thyroid Stimulating Hormone] (01/01/2020 8:24 AM DELIVERY ROOM CLERK) Pathologist Sig nature TSH 2.42 0.45 - 5.33 uIU/mL [facility] Specimen Blood - Arm, left Performing Organization Address [facility] Phone Number [facility] [address] [place] [address] [phone] Liver Profile (01/01/2020 8:24 AM DELIVERY ROOM CLERK) Pathologist Sig nature Total Protein 6.2 6.0 - 8.3 g/dL [facility] Bilirubin, Total 0.8 0.2 - 1.2 mg/dL [facility] Alkaline Phosphatase 62 34 - 104 U/L [facility] AST 34 13 - 39 U/L [facility] Direct Bilirubin 0.1 0.0 - 0.2 mg/dL [facility] ALT 54 (H) 7 - 52 U/L [facility] Albumin 3.7 (L) 4.2 - 5.5 g/dL [facility] Specimen Blood - Arm, left Performing Organization Address [facility] Phone Number [facility] [address] [place] [address] Lipid Profile (01/01/2020 8:24 AM DELIVERY ROOM CLERK) Cholesterol 152.0 <=200.0 mg/dL [facility] Triglyceride 133 <150 mg/dL [facility] HDL 42.0 See Reference [facility] Range Narrative. LABORATORY mg/dL LDL 83 <100 mg/dL [facility] Comment: [facility] Optimal: < 100.0 mg/dL Near Optimal: 120-129 mg/dL Borderline: 130-159 mg/dL High: 160-189 mg/dL Very High: >=190 mg/dL Patient Fasting? No [facility] Specimen Blood - Arm, left Narrative Performed At Patient is not fasting. For a triglyceride result grea ter than [facility] 440 mg/dL, consider re-testing when the patient is in a fasting state. Performing Organization Address City/State/Zipcode Phone Number [facility] [address] [place] [address] Fecal Occult Blood (12/11/2019 11:04 AM DELIVERY ROOM CLERK) Pathologist Sig nature Occult Blood Negative Negative [facility] Specimen Stool - Feces Performing Organization Address [facility] Phone Number [facility] [address] [place] [address] POCT GLUCOSE POC docked device (12/11/2019 9:38 AM DELIVERY ROOM CLERK) Pathologist Sig nature Glucose POC 160 (H) 74 - 106 mg/dL [facility] Y Specimen Blood Performing Organization Address [facility] Phone Number [facility] [place] [place] [address] [facility] [address] [address] POC RAPID HIV (12/11/2019 9:38 AM DELIVERY ROOM CLERK) Pathologist Sig nature Rapid HIV Result Negative Rapid HIV Control Pass Specimen Blood after 09/01/2019 Insurance Payer Benefit Plan / Subscriber ID Effective Dates Phone Addre ss Type Group HOM[employer]ESS CARLOS HOMELESS CARLOS xxxxxxx 2019- [phone] 2019 [address] [place] [address] [phone] (Work) [address] Self 1955 [address] (Home) [place] [phone] (Work) Advance Directives Type Date 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 Advance Directives and Living 12/11/2019 9:59 AM Will Advance Directives and Living 12/13/2019 10:21 AM Will Advance Directives and Living 12/24/2019 8:53 AM Will Advance Directives and Living 12/27/2019 11:37 AM Will Advance Directives and Living 01/06/2020 9:55 AM Will Advance Directives and Living 01/07/2020 10:32 AM Will Advance Directives and Living 01/15/2020 11:46 AM Will Advance Directives and Living 01/16/2020 11:39 AM Will Advance Directives and Living 01/17/2020 9:49 AM Will Advance Directives and Living 02/24/2020 10:41 AM Will Advance Directives and Living 02/27/2020 9:16 AM Will Advance Directives and Living 04/10/2020 11:17 AM Will Advance Directives and Living 04/21/2020 2:25 PM Will Advance Directives and Living 05/06/2020 2:31 PM Will
--- OUTSIDE RECORDS SUMMARY | 2020-09-01 12:27 | XMS REPORT | Continuity of Care Document ---
:1955 Author Organization [facility] t Address [address] [place] [address] Care Team Providers Name Role Phone Meera WOOL MIXER, U Primary Care Physician Althea RIDLEY Attending Clinician Unavailable JESU Attending Clinician Unavailable Jaime CROCKETT Attending Clinician Unavailable Syd RAPP Attending Clinician Unavailable Nany NGUYEN Attending Clinician Unavailable Althea KENNY Attending Clinician Unavailable Rene BENITEZ, I Attending Clinician Gerardo DEE, G Attending Clinician Jaden Physician Practice Consultant, Vickie Attending Clinician Unav deny May MD Attending Clinician Kaveh DEE, R Attending Clinician Sathish WOOL MIXER Attending Clinician Chetan PIÑA, P Attending Clinician Katalina Attending Clinician Unavailable Payers Payer Name Policy Type Policy Number Effective Date Expiration Date S oursophia HOMELESS xxxxxxx 2019 2020 Pj GRANTHOMELESS 00:00:00 23:59:59 Health GRANTxxxxxxx1/[id number] [place] [address] Problems Condition Condition Condition Status Onset Resolution Last Treating Co mments Source Name Details Category Date Date Treatment Clinician Date Follow up Follow up Disease Active Adolfo ris for COVID for COVID 8-13 Heal th infection. infection. 00:00: 00 Essential Essential Disease Active Adolfo ris hypertensi hypertensi 4-13 He alth on on 00:00: 00 Homeless Homeless Disease Active [employer] s 12-11 Health 00:00: 00 Mass of Mass of Disease Active [place] thigh, thigh, 12-11 Health right right 00:00: 00 Exercise Exercise Disease Active [facility] s counseling counseling 12-11 He alth for Above for Above 00:00: Normal BMI Normal BMI 00 Only! Only! History of Past Illness Condition Condition Condition Status Onset Resolution Last Treating Co mments Source Name Details Category Date Date Treatment Clinician Date Cyst of Cyst of Disease Resolve 2019-12-11 2019-12-11 [facility] soft soft d 12-11 00:00:00 12:48:50 Health tissue tissue 00:00: 00 Allergies, Adverse Reactions, Alerts This patient has no known allergies or adverse reactions. Social History Social Habit Start Date Stop Date Quantity Comments Source Sex Assigned At [place] He alth Exposure to Not sure [place] [email or web address] SARS-CoV-2 (event) Alcohol intake 2020-08-18 2020-08-18 Current drinker [facility] 00:00:00 00:00:00 of alcohol (finding) History [facility] Food 2019-12-11 2019-12-11 1 [employer] Worry 00:00:00 00:00:00 History [facility] Food 2019-12-11 2019-12-11 1 [facility] [email or web address] Scarcity 00:00:00 00:00:00 Alcohol Comment 2019-12-11 2019-12-11 Last time used [facility] 00:00:00 00:00:00 11/18/2019 History of tobacco 2019-11-28 Current some day [place] [email or web address] use 00:00:00 smoker Smoking Status Start Date Stop Date Source Current some day smoker 2020-08-18 00:00:00 [facility] [email or web address] Medications Ordered Filled Start Stop Current Ordering Indication Dosage Frequency Signature Comments Components Source Medication Medication Date Date Medication? 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 mupirocin 2019-11 Yes Squ[facility] Use daily [facility] calcium 0-06 cell with Health (BACTROBAN) 00:00: carcinoma, dressing 2 % topical 00 trunk changes. cream ibuprofen 2019-11 Yes [facility] 800mg Take 1 H arris (MOTRIN) 0-06 cell tablet by [facility] 800 mg 00:00: carcinoma, mouth tablet 00 trunk every 8 hours as needed for Pain (mild pain). 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 lamoTRIgine Yes Bipolar 25mg Q.5D Take 1 H arris (LAMICTAL) 7-16 disorder in tablet by Health 25 mg 00:00: partial mouth 2 tablet 00 remission, times most recent daily episode ....Open unspecified Door type [facility] lamoTRIgine 2019- No Bipolar 25mg Q.5D Take 1 [facility] (LAMICTAL) 7-16 07-16 disorder in tablet by [facility] 25 mg 00:00: 00:00 partial mouth 2 tablet 00 :00 remission, times most recent daily episode ....Open unspecified Door type [facility] lisinopriL Yes Medication 5mg QD Take 1 [facility] (PRINIVIL, 7-14 refill tablet by [facility] SCOTT) 5 00:00: mouth mg tablet 00 daily Deliver to [facility]. tamsulosin Yes Decreased .4mg QD Take 1 [facility] (FLOMAX) 7-14 urine capsule by [facility] 0.4 mg 00:00: stream mouth extended 00 daily release Delivery capsule to [facility]. lisinopriL 0 2020- No Medication 5mg QD Take 1 [facility] (PRINIVIL, 7-14 07-14 refill tablet by [facility]) 5 00:00: 00:00 mouth mg tablet 00 :00 daily. tamsulosin 2019- 2020- No Decreased .4mg QD Take 1 [facility] (FLOMAX) 6-29 07-14 urine capsule by [facility] 0.4 mg 00:00: 00:00 stream mouth extended 00 :00 daily. release capsule lisinopriL 2019- No Medication 5mg QD Take 1 [facility] (PRINIVIL, 04-21-14 refill tablet by lexi CHAVEZ) 5 00:00: 00:00 mouth mg tablet 00 :00 daily. cephALEXin 2020- No Infected 500mg Take 1 P[facility] (KEFLEX) 04-21 sebaceous capsule by [email or web address] 500 mg 00:00: 23:59 cyst of mouth 4 capsule 00 :00 skin times daily for 10 days. therapeutic 2019- Yes Dry skin Apply to [facility] hand & body 04-10 affected Heal th (THERA-DERM 00:00: area as ) lotion 00 needed (dry skin). tamsulosin 2019- No Decreased .4mg QD Take 1 [facility] (FLOMAX) 04-02 urine capsule by [facility] 0.4 mg 00:00: 00:00 stream mouth extended 00 :00 daily. release capsule multivitami 2019- Yes Nutrition 1{tbl} QD Take 1 [facility] n tablet 03-17 deficiency tablet by [email or web address] 00:00: due to a mouth 00 particular daily. kind of food lisinopriL 2019- No Essential 5mg QD Take 1 [facility] (PRINIVIL, 5-03 18-09 hypertensio tablet by [facility] 5 00:00: 00:00 n mouth mg tablet 00 :00 daily. lamoTRIgine 2019- No Bipolar 25mg Q.5D Take 1 [facility] (LAMICTAL) 02-26-16 disorder in tablet by [email or web address] 25 mg 00:00: 00:00 partial mouth 2 tablet 00 :00 remission, times most recent daily episode ....Open unspecified Door type [facility] tamsulosin 2019- 2020- No Decreased .4mg QD Take 1 [facility] (FLOMAX) 02-26- urine capsule by [facility] 0.4 mg 00:00: 00:00 stream mouth extended 00 :00 daily. release capsule lisinopriL 2019- No Essential 5mg QD Take 1 [facility] (PRINIVIL, 4-13 05-05 hypertensio tablet by [facility]) 5 00:00: 00:00 n mouth mg tablet 00 :00 daily. lamoTRIgine 2019-0 2020- No Bipolar 25mg Q.5D Take 1 [facility] (LAMICTAL) 02-04-16 disorder in tablet by Health 25 mg 00:00: 00:00 partial mouth 2 tablet 00 :00 remission, times most recent daily episode ....Open unspecified Door type [facility] lisinopriL 2019- 2020- No Essential 2.5mg QD Take 0.5 [facility] (PRINIVIL, 02-04-13 hypertensio tablets by [employer]) 5 00:00: 00:00 n mouth mg tablet 00 :00 daily ....[facility] ibuprofen 2019- 2020- No Chronic 400mg Take 1-2 [facility] (MOTRIN) 02-04- midline low tablets by [email or web address] 400 mg 00:00: 23:59 back pain mouth tablet 00 :00 without every 8 sciatica hours as needed for up to 10 days for Pain. lamoTRIgine 2020- No Bipolar 25mg Q.5D Take 1 [facility] (LAMICTAL) 01-27 disorder in tablet by [email or web address] 25 mg 00:00: 00:00 partial mouth 2 tablet 00 :00 remission, times most recent daily for episode 60 days. unspecified type lisinopriL 2020- No Essential 2.5mg QD Take 0.5 [facility] (PRINIVIL, 01-14 hypertensio tablets by [facility]) 5 00:00: 00:00 n mouth mg tablet 00 :00 daily. divalproex 2019- 2020- No Bipolar I 500mg Q.5D Take 500 [facility] (DEPAKOTE) 01-07 disorder mg by [facility] 500 mg 10:53: 00:00 mouth 2 delayed 49 :00 times release daily. tablet divalproex 2019- 2020- No Bipolar I 500mg Q.5D Take 1 [facility] (DEPAKOTE) 01-07-17 disorder tablet by [email or web address] 500 mg 00:00: 00:00 mouth 2 delayed 00 :00 times release daily. tablet lisinopril 2020- No Essential 5mg QD Take 1 [facility] (PRINIVIL, 01-07- hypertensio tablet by [facility]) 5 00:00: 00:00 n mouth mg tablet 00 :00 daily. ferrous 2019-0 2020- No Iron 325mg QD Take 1 [facility] sulfate 325 01-06 deficiency tablet by [facility] mg (65 mg 00:00: 00:00 anemia, mouth iron) 00 :00 unspecified daily tablet iron (with deficiency breakfast) anemia type . docusate 2020- No Drug-induce 100mg Q.5D Take 1 [facility] sodium 01-06-05 d capsule by [facility] (COLACE) 00:00: 23:59 constipatio mouth 2 100 mg 00 :00 n times capsule daily for 10 days. vitamin A Yes Dry skin Apply to [facility] and D 2 affected Health ointment 00:00: area as 00 needed for dry skin. therapeutic 2019- No Dry skin Apply to [facility] hand & body 12-27 affected Hea lth (THERA-DERM 00:00: 00:00 area as ) lotion 00 :00 needed (dry skin). multivitami 2019- No Nutrition 1{tbl} QD Take 1 [facility] n tablet 12-11 deficiency tablet by [facility] 00:00: 00:00 due to a mouth 00 :00 particular daily. kind of food Vital Signs Vital Name Observation Time Observation Value Comments Source Body height 2020-08-18 11:40:00 180.3 cm [facility] Body weight 2020-08-18 11:40:00 105.235 kg [facility] BMI 2020-08-18 11:40:00 32.36 kg/m2 [facility] Systolic blood pressure 2020-05-06 14:30:00 114 mm[Hg] [facility] Diastolic blood pressure 2020-05-06 14:30:00 59 mm[Hg] [facility] Heart rate 2020-05-06 14:30:00 66 /min [facility] Body temperature 2020-05-06 14:30:00 37 Lianne [facility] Respiratory rate 2020-05-06 14:30:00 19 /min [facility] Procedures Procedure Date / Time Performed Performing Clinician [facility] TISSUE EXAM 2020-08-18 12:31:00 [facility] CORONAVIRUS, COVID-2020-06-09 09:41:00 Desire [facility] ([facility]) CORONAVIRUS, COVID-2020-04-09 09:54:00 EgbulefuFrankoce Syd [facility] ([facility]) PROSTATE SPECIFIC ANTIGEN 2020-02-28 08:30:00 EgbulefuShanice [facility] (PS[facility]) URINALYSIS 2020-02-28 08:30:00 Egbulefu, Shanice [facility] lt HEMOGLOBIN A1C 2020-02-28 08:30:00 Egbulefu, Shanice [facility] a lt BASIC METABOLIC PANEL 2020-02-28 08:30:00 EgbulefuShanice [facility] URINALYSIS 2020-02-28 08:30:[address] [facility] lt U/S EXTREMITY NONVASCULAR, 2020-01-21 10:39:24 EgbulefuShanice [facility] COMPLETE DEANNA 2020-01-08 10:53:00 Breonna [facility] PT/INR/PTT 2020-01-08 10:53:00 Breonna [facility] HEPATITIS C GENOTYPE 2020-01-08 10:53:00 Breonna Bower [facility] HEMOGLOBIN A1C 2020-01-06 10:39:00 Breonna [facility] HEPATITIS PANEL 2020-01-06 10:09:00 EgbulefuShanice [facility] HCV RNA QUANT, PCR 2020-01-06 10:09:00 EgbulefuShanice [facility] LIPID PROFILE 2020-01-01 08:24:[address] [facility] lt BASIC METABOLIC PANEL 2020-01-01 08:24:00 EgbulefuShanice [facility] LIVER PROFILE 2020-01-01 08:24:[address] [facility] lt CBC/DIFF 2020-01-01 08:24:00 Egbulefu, Shanice Velarde [facility] lt THYROID STIMULATING HORMONE 2020-01-01 08:24:00 EgbulefuShanice [facility] (TSH) CBC 2020-01-01 08:24:[address] [facility] lt FECAL OCCULT BLOOD 2019-12-11 11:04:00 EgbulefuShanice [facility] POC RAPID HIV 2019-12-11 09:38:[address] [facility] lt GLUCOSE POC 2019-12-11 09:38:00 SamnataliaShanice wall U [facility] Plan of Care Planned Activity Planned Date Details Comments Source Future Scheduled Test 2020-12-11 00:00:00 Screening for [facility] malignant neoplasm of colon (procedure) [code = 955435949] Encounters Start End Encounter Admission Attending Care Care Encounter Source Date/Time Date/Time Type Type Clinicians Facility Department ID 2020-09-15 2020-09-15 Outpatient [facility] [id number] [place] 00:00:00 00:00:00 [facility] 2020-09-01 2020-09-01 Outpatient [facility] [id number] [place] 00:00:00 00:00:00 [facility] 2020-08-18 2020-08-18 [facility] [id number] [place] 11:15:21 12:27:42 YOSELIN Nolen 2020-08-18 2020-08-18 [facility] [id number] [place] 00:00:00 00:00:00 YOSELIN Nolen 2020-08-11 2020-08-11 Outpatient [facility] [id number] [place] 00:00:00 00:00:00 [facility] 2020-08-04 2020-08-04 Outpatient [facility] [id number] [place] 00:00:00 00:00:00 [facility] 2020-07-30 2020-07-30 Outpatient [facility] [id number] [place] 00:00:00 00:00:00 [facility] 2020-07-28 2020-07-28 [facility] [id number] [place] 13:37:51 14:54:10 HUNTER [facility] 2020-07-02 2020-07-02 Outpatient [facility] [id number] [place] 00:00:00 00:00:00 [facility] 2020-06-25 2020-06-25 [facility] [id number] [place] 14:18:13 14:43:29 SHANICE [facility] 2020-06-25 2020-06-25 Outpatient [facility] [id number] [place] 00:00:00 00:00:00 [facility] 2020-06-11 2020-06-11 [facility] [id number] [place] 12:49:41 15:09:07 DEVONTE [facility] 2020-06-09 2020-06-09 Outpatient [facility] [id number] [place] 08:33:51 08:33:51 2020-06-09 2020-06-09 Outpatient [facility] [id number] [place] 00:00:00 00:00:00 2020-06-09 2020-06-09 Outpatient [facility] [id number] [place] 00:00:00 00:00:00 2020-05-28 2020-05-28 Outpatient [facility] [id number] [place] 09:26:30 09:26:30 2020-05-26 2020-05-26 Outpatient [facility] [id number] [place] 11:20:38 11:20:38 2020-05-11 2020-05-11 Outpatient [facility] [id number] [place] 14:10:35 14:10:35 Health 2020-05-06 2020-05-06 Outpatient [facility] [id number] [place] 14:28:22 14:28:22 Health 2020-04-21 2020-04-21 Outpatient [facility] [id number] [place] 14:23:26 14:23:26 2020-04-10 2020-04-10 Outpatient [facility] [id number] [place] 11:17:09 11:17:09 2020-04-09 2020-04-09 Outpatient [facility] [id number] [place] 09:47:54 09:47:54 2020-04-09 2020-04-09 Outpatient [facility] [id number] [place] 00:00:00 00:00:00 2020-04-07 2020-04-07 Outpatient [facility] [id number] [place] 00:00:00 00:00:00 2020-04-02 2020-04-02 Outpatient [facility] [id number] [place] 15:19:01 15:19:01 2020-03-26 2020-03-26 Outpatient [facility] [id number] [place] 14:40:11 14:40:11 2020-03-26 2020-03-26 Outpatient [facility] [id number] [place] 00:00:00 00:00:00 Health 2020-03-17 2020-03-17 Outpatient [facility] [id number] [place] 10:42:31 10:42:31 2020-03-09 2020-03-09 Outpatient [facility] [id number] [place] 09:33:27 09:33:27 2020-03-09 2020-03-09 Outpatient [facility] [id number] [place] 00:00:00 00:00:00 2020-02-28 2020-02-28 Outpatient [facility] [id number] [place] 08:31:09 08:31:09 2020-02-28 2020-02-28 Outpatient [facility] [id number] [place] 00:00:00 00:00:00 2020-02-27 2020-02-27 Outpatient [facility] [id number] [place] 11:43:32 11:43:32 2020-02-27 2020-02-27 Outpatient [facility] [id number] [place] 09:15:43 09:15:43 2020-02-24 2020-02-24 Outpatient [facility] [id number] [place] 10:39:14 10:39:14 Health 2020-02-18 2020-02-18 Outpatient [facility] [id number] [place] 00:00:00 00:00:00 2020-02-05 2020-02-05 Outpatient [facility] [id number] [place] 10:22:32 10:22:32 Health 2020-02-04 2020-02-04 Outpatient [facility] [id number] [place] 00:00:00 00:00:00 2020-01-28 2020-01-28 Outpatient [facility] [id number] [place] 08:49:09 08:49:09 2020-01-28 2020-01-28 Outpatient [facility] [id number] [place] 00:00:00 00:00:00 Health 2020-01-21 2020-01-21 Outpatient [facility] [id number] [place] 10:21:15 10:21:15 Health 2020-01-20 2020-01-20 Outpatient [facility] [id number] [place] 10:45:29 10:45:29 Health 2020-01-17 2020-01-17 Outpatient [facility] [id number] [place] 09:47:21 09:47:21 Health 2020-01-16 2020-01-16 Outpatient [facility] [id number] [place] 11:37:56 11:37:56 Health 2020-01-15 2020-01-15 Outpatient [facility] [id number] [place] 11:46:10 11:46:10 Health 2020-01-08 2020-01-08 Outpatient [facility] [id number] [place] 11:56:32 11:56:32 Health 2020-01-08 2020-01-08 Outpatient [facility] [id number] [place] 00:00:00 00:00:00 2020-01-07 2020-01-07 Outpatient [facility] [id number] [place] 10:31:43 10:31:43 Health 2020-01-06 2020-01-06 Outpatient [facility] [id number] [place] 09:55:06 09:55:06 Health 2020-01-06 2020-01-06 Outpatient [facility] [id number] [place] 00:00:00 00:00:00 Health 2020-01-06 2020-01-06 Outpatient [facility] [id number] [place] 00:00:00 00:00:00 Health 2020-01-02 2020-01-02 Outpatient [facility] [id number] [place] 10:01:43 10:01:43 Health 2020-01-01 2020-01-01 Outpatient [facility] [id number] [place] 08:25:20 08:25:20 Health 2020-01-01 2020-01-01 Outpatient [facility] [id number] [place] 00:00:00 00:00:00 [facility] 2019-12-27 2019-12-27 Outpatient [facility] [id number] [place] 11:36:09 11:36:09 Health 2019-12-24 2019-12-24 Outpatient [facility] [id number] [place] 08:49:24 08:49:24 [facility] 2019-12-13 2019-12-13 Outpatient [facility] [id number] [place] 10:14:19 10:14:19 Health 2019-12-13 2019-12-13 Outpatient [facility] [id number] [place] 00:00:00 00:00:00 [facility] 2019-12-11 2019-12-11 Outpatient [facility] [id number] [place] 09:32:18 09:32:18 Health 2019-12-11 2019-12-11 Outpatient [facility] [id number] [place] 00:00:00 00:00:00 Health Results Test Description Test Time Test Comments Results Result Comments Source Pathology - Tissue Exam 2020-08-27 14:11:00 Test Item Value Reference Range Interpretation Comme nts Case Report (test code = [id number]) Surgical Pathology Case: [id number] Authorizing Provider: Yoselin Ridley MD Collected: 08/18/2020 12:31 PM Ordering Location: [facility] Received: 08/18/2020 12:47 PM Pathologist: Dilma Ventura MD Specimen: Other (Specify in Comments) FINAL DIAGNOSIS (test code = [id number]) n8sbeYQzLSJzkHPqNuWkV UZgGBMko7qwAKNlzVQf FsTuKyWsOsLgKscltRPhPCHyHjFcx9lje630jJBr y2emXHZsEtV1tJZrVLTfkXLiC922VRMfGMcva8mz f0ZyFFIoeANkf9F1LTYUzbbysDt9aVjeT90sq0C8 WaclM7mnJVIpFHirWZMeKChnsVWxYPR8PEUnOHM1 KLlqdaNmkzK3KZuroRPnGyS6RDo3a6bkgPcbCJWm WAG5j3rrMJjjulWqMY0brx8xqWd9v7oyirEtLHYj XYYmpEIPORArH8JwuPqpLi1vrBw6iXpnVenaVQT4 Jez7SO9wrs08jde0oQvjAGAbjvduIyX8KCnvQAKa dknoBFs3SLczDKQptLUdBjzyZMOebuGiTjbyXNGq vUNvKrbzAABnWhPmHnlwQCVyCLM8YyThUHBvo3Fe gvtgAO4bX5Lci2V6kF9ysGPcQDYtbXZwLoSeEMQt zr2ogUFaNReyi9TlWIO2xqU1nFUglNLnEFTnEX21 Kberx1LiSiffNKF1ULAeeeNwh7Muf4djWtXbkgHj G9hbL4AjBVSaVZNpOMMfFeFwayDhi1Sda3JzzTVd xQv7u2geCKDyLDDiuWhdf6klSSG0MJDkP8K6nCWc e7xlGNhxNKUpxUM9snAcOzbqUOExdtF5woKzLeoi OXWztTA3dqIxJnjlGMPvCfG7yaDaYwblJSOlAZH9 YmEcFFQnh7OvvtgcIEQpk2TfB7UdgMhsL96isTfd I42jDFYvlDnxyY6osGpmgI5sGzKtMhTzXJyuRUOp FDBcNQgrFESxFXEdEwTrwDhlpD9fXsKzFaJqANUD OqMRJ0sCNJHTDVpETALEDHPQRQ8PPAAZMIYBRICN G0tgSWFMV4gCEW6GSQQmmuffBPUxNBDngZBgLCO3 cLKczkTcmAk3QxRegCtgbEimtG4lJbDbXiAhUHhh yHUkhtiqOTuqfnYrULSwQIYoQU3rI9MASNIPRXAZ TIQVPuASBUSLTZOOWWVXLG9CEpMUYVaCRVNRCrDY Hu6ACLiyD8nYZKWkC8JNA5rPQHefINWIT0wYT0yt YXJccGFyfQ== Clinical Impression (test code = t0foyMPzPXPhc4qpBNSnvDLvHmMiPkLkXy [facility] [id number]) IZXgeoC7Axl7ZEIiLTpsrZ2jCNSrJMaaY6ngasOk rTIpRXHgCUt9zJ5gtLhfaN7oMyExUjThXPDCS9Wi cGFyIH0= Gross Description (test code = [id number]MSfz5lvDYEp [facility] [id number]) [file] XGYxXGZzMjBcbGFuZzEwMzNcaGljaFxmMVxkYmNo JFRiPGygL0ufZsKpH3DqCEGyMkQboMKqY6tlRENz xpMjJVSfjA8pTPasdKBwMSA4bRE1EV3rRLD7puRt BNofIVPizNVovnGrYP8doRqpxVNcBiVxZ37ddD0j c1njkFyeFHJ7wZM8eaPfHQBwlOMkIC7yTMUjMVYc eU2fBSDnWFEoBTcjKUWvh0Q0lXIcRB7iFM7oCETy VtS9yXFicJeslp4wAHTxBOXsjQX3hbQmtLBuUUSl iDvyHQReBHCblBJ0lADnnLN0zR7us7m6JWinp3Cy xA3iUVTvt5txFH07YCMrSNYeIE3iB4ztK0vbHTTH tOQyRFTllyBeWMjkoJBvWHFnyepfBo5vFTsysDFg XN3jqxWyIAxtPaQoMMByES0aKHXuSUGsz3taFEIu ITZsfNWhe4GvEPVvEn1aHOtgNk4kQLfcZY6tXJBf WyOvDVosWJ5mw3QypOZdlG3rIPDgDDC6wDCmhU4k AB45IPJwXWLtc59heJmeQLPmhmnicD7htjArHHXt uX2uYGUvWGVkwQNebj5jYMSzFQU2WF9qZ9klJ9lk cOQkR0yzIKNnghLyXv2jBNLrTDInu94xVy81eUV0 aXBzLiAgXHBhclxwYXIgVGhlIHNwZWNpbWVuIGlz VGkhr4GuQTJgWISnxPprr7W9FJpfDQQhLNIcAcVm I3Ljt3FvEE0iicKeKKHsnoPnXWOnenikoQ6sdyF3 CCuoAVMxLJQkhyB0QXzjnpnwhP5yotV1FCIfoRMj dWPsMYFuKSNbuTVqI4caGF1hAechY3heeDSbOZIy eeLUhIQzm2YeF0iaMH5sdIWwx4DwqZdvvxRrDVKs u95gBBQdSqCpQ8Pey5RjSWEfRRMjfzNlmVI1jSVm dZVzqxLbhSBfovQlKAToZGbxgCevjcWaFvBcW65v PlDczHS3qXUoOZHasMFrDUOggR8dMCWkxsrkZJWa F7RsgEqhdiKMq8HqRoWygPCbYBNiWpVqSl63sRQ4 rIEaHJFbbgNMWc8WSjjrAR8qUAZmDMT8nK1hCSJy qRJpQLW7WZNyIQJkhtZFQE6SQUzvQB0bSDFqCID5 bT8gJGUgrNQbTQW1HNEmMDGffiDKOa4GBdeeNW4m ECYouColCYwyRJgfn1RifAQpQWYcnjfbOFDuNXuz HAGKMKGxkrSkHPVlTBimLUAakXNoWUExhPquhR6s nZFKBTEeRNVxxJWdoFoqfG8dUhKgZhSqQDhnHO3b ESGzE7yjoHCrACHdYOGzB6xrMtAurC0quIapAOqr czIwXHBhcn0= Microscopic Description (test code = [id number] lcZGVmbG [id number]) XiXoFqHaEaShWdjucBLgVRNeEsWru0ydb037dDNx w5xxXXJhNlV1kEPaLXIveFDlJ190NVJaKQhgv3cv v2PtRCKhrVQcn5T6QGRMnovduSd8mYzaL76rq5A2 IyltJ1uyNVNpQXPfC9CgYR0iAGIdQeq1RBO5EAG2 TYRpUWUkZ1IsQT8nIYItgXRaSKw4a1snnCjoBCBv PGZ3a9fmFJavrkZdLL0gay1wbLr1f1gojbPiSFLj WMBrlLYXXQLhI1QyfHvaZt3hyZc5wBmjVhwzMIL1 Obz1HY2tjb42enf3zStrPBYxwugnWgV5UFwzDHGc jdneHNr9FXzhTEFaoDXlToozXJOfqpLeFlsrWADi lRRlJgdjOIZpSeXzQblyIWBhIDD3GpDyJPFqn0Fj ezuwQF9fB0Fyl6Q9pK0jgDCfRGYtlEBjFvPiROVc ex6qzHPdVZiij6LvZHA2akA3jWLnqBSpFKRbCY83 Wdqob6RkFikjVTD8AMNhweJqp6Hma9rpXdYajjHb C8viI2AyMOPpQNDeTGMeGpGnjuYwd6Dhm6BkpWMl lQn5x4gaBTDhBZKvqTflj7diUOT7INTuJ3P1nDVi f6lmLWhvGQDxnVY3moItHxjpUWNkceL8stYyZyih BHZjyVA5hjJxFkhaANPzZhC3saVjAzocLPMuNYY7 WsXqWHIkj7UvyffnVNRuu2JuN3FocRsrR20sjHdo S32mIJJreEdlrC7enVoewE1uXeOcRkKlYYqohBhy xDKpaubgTZtcesMbEUnllobtNJUwRWbnI6cwIaJk ZMInnXjiZKxqr0QxIBFaIBVwWgFqMMPgLf9oaWCz XHBhcn0= [facility] HealthCoronavirus, CoVID-19, ALFREDO ([facility])2020-06-11 07:09:00 Test Item Value Reference Interpretation Comments Range CoVID-19 Detected Not Detected A (SARS-CoV-2) (test Client Re quested code = 56512-6) FlagTesting was performed using the [employer] SARS-CoV -2 assay.This test was developed and i ts performance characteristics determinedby [employer] T his test has not be en FDA cleared orappro acacia. This test has b een authorized by [employer] under an Emerge ncy UseAuthorizatio n (EUA). This amanda t is only authorized for the duration of time the declaration that circumstances e xist justifying theauthorizatio n of the emergency u se of in vitro diagno stic tests fordetect ion of SARS-CoV-2 viru s and/or diagnosi s of COVID-19 infectionunder section 564(b)(1) of e Act, 21 U.S.C. 360bbb-3(b)(1), unlessthe authorization i s terminated or r evoked sooner.When ely gnostic testing is nega tive, the possibility of a falsenegative r esult should be consi dered in the context of a patient'srecent exposures and t he presence of cli nical signs and symptomsconsist ent with COVID-19. An individual with out symptoms of COVID-19and who is not shedding SARS-C oV-2 virus would exp ect to have anegative (not detected) resul t in this assay. OLIVIA (test code = Performed at: OLIVIA) [facility] [id number] Director: Jose Roberto Blevins MD, Phone: [phone] Lab Interpretation Abnormal (test code = 65247-3) [id number] 12:25:00 Test Item Value Reference Range Interpretation Comments PSA (test code = 20156220) 0.680 ng/mL <=4.000 Lab Interpretation (test code = Normal 87940-3) [facility] Metabolic [id number] 12:19:00 Test Item Value Reference Range Interpretation Comments Sodium (test code = 2951-2) 137 mmol/L 136-145 Potassium (test code = 2823-3) 4.6 mmol/L 3.5-5.1 Chloride (test code = 2075-0) 103 mmol/L 98-107 CO2 (test code = 53406351) 27 mmol/L 21-31 Urea Nitrogen (test code = 14.0 mg/dL 7-25 34366219) Creatinine (test code = 0.7 mg/dL 0.7-1.3 23730049) Glucose (test code = 13181874) 132 mg/dL 70-110 H Calcium (test code = 63772865) 9.3 mg/dL 8.6-10.3 GFR, Estimated (test code = >90 >=90 mL/min/1.73 m2 18953595) Anion Gap (test code = 7 mmol/L 5-16 76839627) Lab Interpretation (test code Abnormal = 53674-4) [facility] [id number] 12:04:00 Test Item Value Reference Range Interpretation Comments Hemoglobin A1c (test code = 4548-4) 6.4 % 4.3-6.1 H Estimated Average Glucose (test 137 mg/dL 70-110 H code = 81728209) Lab Interpretation (test code = Abnormal 92703-6) [facility] [id number] 12:01:00 Test Item Value Reference Range Interpretation Comments Color (test code = 19723746) Yellow Colorless, Straw, Yellow Clarity (test code = Clear Clear 62716439) Spec [place], Ur (test code = 1.015 1.001-1.035 83317121) pH, Ur (test code = 93572254) 6.0 5.0-8.0 Protein, Ur (test code = Negative Negative mg/dL 86993733) Glucose, Ur (test code = Negative Negative mg/dL 87288483) Ketone, Ur (test code = Negative Negative mg/dL 83031979) Bilirubin, Ur (test code = Negative Negative mg/dL 72490769) Nitrite, Ur (test code = Negative Negative 46708951) Leukocyte (test code = Negative Negative mg/dL 95973665) Blood, Ur (test code = Negative Negative mg/dL 69440106) Urobilinogen, Ur (test code = <1.0 <1.0 EU/dL 52584698) Lab Interpretation (test code Normal = 99187-8) [facility] HospitalU/S EXTREMITY NONVASCULAR, [id number] 11:27:19IMPRESSION: 5.3 cm right upper, anterior thigh lipoma. Dictated By: Xavier Davis MD, 01/21/2020 10:40 AM I have reviewed the study and agree with the findings in this report. Signed By: Solomon Ferreira MD, 01/21/2020 11:27 AM Interface, Rad/Mammog In - 01/21/2020 11:32 AM CDTEXAM: U/S EXTREMITY NONVASCULAR, COMPLETEINDICATION: nontender soft mass, thigh, right anterior COMPARISON: NoneTECHNIQUE: Transverse and sagittal images were performed of the rightupper thigh.FINDINGS: Subcutaneous 5.2 x1.5 x 5.3 cm, oblong-shaped encapsulated mass withfine linear striations parallel to the skin and absent internalvascularity on color Doppler at the right upper, anterior thigh.IMPRESSIONIMPRESSION: 5.3 cm right upper, anterior thigh lipoma.Dictated By: Xavier Davis MD, 01/21/2020 10:40 AMI have reviewed the study and agree with the findings in this report.Signed By: Solomon Ferreira MD, 01/21/2020 11:27 [facility] C [id number] 07:51:00 Test Item Value Reference Range Interpretation Comments HCV Detected (test Detected Not detected A code = 53293882) HCV Genotype (test Genotype 1a code = 89643190) OLIVIA (test code = OLIVIA) This test utilizes the Optrace solid-phase electrochemical array for genotyping of the hepatitis C virus. This test was developed and its performance characteristics determined by the [facility] laboratory at [facility]. It has not been cleared or approved by the U.S.Food and Drug Administration (FDA), however, it has been determined that approval is not necessary as this laboratory is regulated under CLIA as qualified to perform this type of high-complexity testing. This test is used for clinical purposes and should not be regarded as investigational or for research. Lab Interpretation Abnormal (test code = 62040-3) [facility] [id number] 15:31:00 Test Item Value Reference Range Interpretation Comments DEANNA Screen (test code = 77560288) Negative Negative Lab Interpretation (test code = Normal 51348-5) [facility] HospitalHCV RNA Quantitative, [id number] 15:51:00 Test Item Value Reference Range Interpretation Comments HCV RNA QUANT, PCR (test 7756572 <=0 IU/mL H code = 10666-6) OLIVIA (test code = OLIVIA) This test utilizes FDA cleared AMANDA AmpliPrep/AMANDA TaqMan HCV test, v2.0 from [employer] which allows quantitation of viral loads between 15 copies/mL and 10,000,000 of plasma. When the result is positive but <15 copies/mL of HCV RNA, the test will be reported as detected but less than 15 copies/mL". The AMANDA AmpliPrep/ AMANDA TaqMan HCV test, v2.0 is not intended for use as a screening test for the presence of HCV RNA in blood or as a diagnostic test to confirm the presence of HCV infection. This test is intended for use as an aid in the management of patients with HCV infection. Lab Interpretation (test Abnormal code = 90448-8) [facility] HospitalPT/INR/[id number] 15:41:00 Test Item Value Reference Range Interpretation Comments PT (test code = 5902-2) 13.3 11.8- 15.0 Seconds INR (test code = 1.0 Refer to INR 2.0 - 3.0 for moderate 33292478) ranges intensity anticoagulation 2.5 - 3.5 for high in tensity anticoagulation PTT (test code = 28.0 23.6- 36.4 The recomm ended 95812334) Seconds therapuetic ran ge is an APTT 61-103 sec onds which correspon ds to 0.3-0.7 anti Xa u/ml. Lab Interpretation Normal (test code = 02601-7) [facility] HospitalHepatitis [id number] 15:06:00 Test Item Value Reference Range Interpretation Comments Hepatitis C Virus (HCV) Antibody Positive Negative A (test code = 16389-9) Hep B Surface Ag (test code = Negative Negative 5196-1) Hep A Vir Ab IgM (test code = Negative Negative 50265-1) Hep B Core Ab IgM (test code = Negative Negative 97276-7) Lab Interpretation (test code = Abnormal 20307-9) [facility] HospitalCBC/[id number] 11:38:00 Test Item Value Reference Range Interpretation Comments WBC (test code = 6690-2) 7.3 K/uL 4.5-12 RBC (test code = 789-8) 6.13 4.60- 6.20 M/uL Hemoglobin (test code = 718-7) 12.5 g/dL 14-18 L Hematocrit (test code = 39.5 % 40-54 L 4544-3) MCV (test code = 787-2) 64.4 fL 82-92 L MCH (test code = 785-6) 20.4 pg 27-31 L MCHC (test code = 786-4) 31.6 g/dL 32-36 L RDW (test code = 16543-3) 38.5 fL 35.1-43.9 Platelet (test code = 777-3) 174 K/uL 150-400 Mean Platelet Volume (test N ot measured. code = 39928-6) Percent NRBC (test code = 0.0 % 19920723) Neutrophil (test code = 770-8) 57.6 % 34-67.9 Lymphs (test code = 736-9) 26.8 % 21.8-50 Monocytes (test code = 5905-5) 12.8 % 5.3-12 H Eos (test code = 713-8) 2.0 % 0.8-5 Basos (test code = 706-2) 0.5 % 0.2-1.2 Immature Granulocytes (test 0.3 % 0-0.5 code = 62525574) Neutrophils (Absolute) (test 4.21 K/uL 1.78-5.36 code = 56837355) Lymphs (Absolute) (test code = 1.96 K/uL 1.32-3.57 70800245) Monocytes(Absolute) (test code 0.94 K/uL 0.3-0.82 H = 64348884) Eos (Absolute) (test code = 0.15 K/uL 0.04-0.54 93302005) Baso (Absolute) (test code = 0.04 K/uL 0.01-0.08 63522740) Immature Grans (Abs) (test 0.02 K/uL 0-0.03 code = 39954427) Absolute NRBC (test code = 0.00 K/uL 71425306) Lab Interpretation (test code Abnormal = 80791-3) [facility] HospitalLipid [id number] 17:55:00 Test Item Value Reference Range Interpretation Comments Cholesterol (test 152.0 mg/dL <=200.0 code = 2093-3) Triglyceride (test 133 mg/dL <150 code = 44136756) HDL (test code = 42.0 mg/dL See Reference 5-9) Range Narrative. LDL (test code = 83 mg/dL <100 Optimal: < 51041-5) 100.0 mg/dLNear Optimal: 120-129 mg/dLBorderline : 130-159 mg/dLHigh: 160-189 mg/dLVery High: >=190 mg/dL Patient Fasting? No (test code = 79632461) OLIVIA (test code = Patient is not OLIVIA) fasting. For a triglyceride result greater than 440 mg/dL, consider re-testing when the patient is in a fasting state. [facility] HospitalLiver [id number] 17:55:00 Test Item Value Reference Range Interpretation Comments Bilirubin, Total (test code = 0.8 mg/dL 0.2-1.2 2885-2) Alkaline Phosphatase (test code = 62 U/L 34-104 14804600) AST (test code = 36743795) 34 U/L 13-39 Direct Bilirubin (test code = 0.1 mg/dL 0-0.2 1968-7) ALT (test code = 76933826) 54 U/L 7-52 H Albumin (test code = 38955-4) 3.7 g/dL 4.2-5.5 L Lab Interpretation (test code = Abnormal 65219-1) [facility] HospitalTSH [Thyroid Stimulating Hormone]2020-01-01 17:02:00 Test Item Value Reference Range Interpretation Comments TSH (test code = 60565547) 2.42 0.45- 5.33 uIU/mL Lab Interpretation (test code = Normal 92554-0) [facility] [id number] 19:34:00 Test Item Value Reference Range Interpretation Comments Occult Blood (test code = 16839-4) Negative Negative Lab Interpretation (test code = Normal 99556-8) [facility] RAPID [id number] 09:58:00 Test Item Value Reference Range Interpretation Comments Rapid HIV Result (test code = 8988) Negative Rapid HIV Control (test code = 8989) [facility] GLUCOSE POC docked [id number] 09:40:00 Test Item Value Reference Range Interpretation Comments Glucose POC (test code = 60166837) 160 mg/dL 74-106 H Lab Interpretation (test code = Abnormal 21670-8) [facility]
--- NOTE | 2020-09-01 13:24 | ER ---
Nurse's Notes [facility] Name: Sidney Calle Age: 65 yrs Sex: Male : 1955 Arrival Date: 09/01/2020 Time: 11:54 Bed 14 Private MD: Diagnosis: Encounter for screening, unspecified Presentation: 09/01 12:10 Chief complaint: Patient states: 1. 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 ll1 States he need his stitches removed, can't get to [place] for appointment,. No fever or pain. 2. Out of lisinopril 5mg for 2 days. Coronavirus screen: Client denies travel out of the [place] in the last 14 days. At this time, the client does not indicate any symptoms associated with coronavirus-19. Ebola Screen: Patient denies travel to an Ebola-affected area in the 21 days before illness onset. Initial Sepsis Screen: Does the patient meet any 2 criteria? No. Patient's initial sepsis screen is negative. Does the patient have a suspected source of infection? Yes: Skin breakdown/wound. Risk Assessment: Do you want to hurt yourself or someone else? Patient reports no desire to harm self or others. Onset of symptoms was August 19, 2020. 12:10 Method Of Arrival: Ambulatory ll1 12:10 Acuity: GAVIN 4 ll1 Historical: - Allergies: 12:13 No Known Allergies; ll1 - PMHx: 12:13 Bipolar disorder; Hypertension; ll1 - PSHx: 12:13 None; ll1 - Immunization history:: Flu vaccine is not up to date. - Social history:: Smoking status: Patient denies any tobacco usage or history of. Screenin:53 Abuse screen: Denies threats or abuse. Denies injuries from another. Nutritional ss screening: No deficits noted. Tuberculosis screening: Never had TB. Fall Risk None identified. Assessment: 13:53 General: Appears in no apparent distress. comfortable, Behavior is calm, cooperative. ss Pain: Denies pain. Neuro: Level of Consciousness is awake, alert, obeys commands. Respiratory: Respiratory effort is even, unlabored. Derm: Skin is pink, warm \T\ dry. normal. Vital Signs: 12:10 BP 140 / 93; Pulse 65; Resp 17; Temp 98.2; Pulse Ox 97% ; Weight 105.23 kg; Pain 0/10; ll1 ED Course: 11:54 Patient arrived in ED. ds1 12:00 Ceci Abraham FNP-C [facility]. snw 12:00 Daniel Schulte MD is Attending Physician. snw 12:13 Triage completed. ll1 12:13 Arm band placed on. ll1 13:53 Patient has correct armband on for positive identification. ss 13:53 No provider procedures requiring assistance completed. Patient did not have IV access ss during this emergency room visit. Administered Medications: No medications were administered Outcome: 13:24 Discharge ordered by . snw 13:53 Discharged to home ss 13:53 Condition: good 13:53 Instructed on discharge instructions, follow up and referral plans. wound care. 13:53 Patient left the ED. ss Signatures: Ceci Abraham FNP-C [employer] TICKET CHECKER-Csnw Carolina Garcia ds1 Shreya Dougherty RN RN Joanna Balderas RN RN ll1
--- NOTE | 2020-09-01 13:24 | EDPHYS ---
Physician Documentation [facility] Name: Sidney Calle Age: 65 yrs Sex: Male : 1955 Arrival Date: 09/01/2020 Time: 11:54 Bed 14 Private MD: ED Physician Daniel Schulte HPI: 09/01 14:35 This 65 yrs old Male presents to ER via Ambulatory with complaints of Suture snw Removal. 14:35 The patient has sutures on the right scapular area. Sutures/gabbi progress: The snw patient has no c/o's. The wound is well-healing with no redness, swelling, discharge, or dehiscence reported. The patient has not experienced similar symptoms in the past. surgeon with removal of malignant tumor. Historical: - Allergies: 12:13 No Known Allergies; ll1 - PMHx: 12:13 Bipolar disorder; Hypertension; ll1 - PSHx: 12:13 None; ll1 - Immunization history:: Flu vaccine is not up to date. - Social history:: Smoking status: Patient denies any tobacco usage or history of. ROS: 14:35 Constitutional: Negative for fever, chills, and weight loss, Eyes: Negative for injury, snw pain, redness, and discharge, ENT: Negative for injury, pain, and discharge, Neck: Negative for injury, pain, and swelling, Cardiovascular: Negative for chest pain, palpitations, and edema, Respiratory: Negative for shortness of breath, cough, wheezing, and pleuritic chest pain, Abdomen/GI: Negative for abdominal pain, nausea, vomiting, diarrhea, and constipation, Back: Negative for injury and pain, : Negative for injury, bleeding, discharge, and swelling, MS/Extremity: Negative for injury and deformity, Neuro: Negative for headache, weakness, numbness, tingling, and seizure, Psych: Negative for depression, anxiety, suicide ideation, homicidal ideation, and hallucinations. 14:35 Skin: Positive for sutures to right posterior thorax. Exam: 14:32 Constitutional: This is a well developed, well nourished patient who is awake, alert, snw and in no acute distress. Head/Face: Normocephalic, atraumatic. Eyes: Pupils equal round and reactive to light, extra-ocular motions intact. Lids and lashes normal. Conjunctiva and sclera are non-icteric and not injected. Cornea within normal limits. Periorbital areas with no swelling, redness, or edema. ENT: Nares patent. No nasal discharge, no septal abnormalities noted. Tympanic membranes are normal and external auditory canals are clear. Oropharynx with no redness, swelling, or masses, exudates, or evidence of obstruction, uvula midline. Mucous membranes moist. Neck: Trachea midline, no thyromegaly or masses palpated, and no cervical lymphadenopathy. Supple, full range of motion without nuchal rigidity, or vertebral point tenderness. No Meningismus. Chest/axilla: Normal chest wall appearance and motion. Nontender with no deformity. No lesions are appreciated. Cardiovascular: Regular rate and rhythm with a normal S1 and S2. No gallops, murmurs, or rubs. Normal PMI, no JVD. No pulse deficits. Respiratory: Lungs have equal breath sounds bilaterally, clear to auscultation and percussion. No rales, rhonchi or wheezes noted. No increased work of breathing, no retractions or nasal flaring. Abdomen/GI: Soft, non-tender, with normal bowel sounds. No distension or tympany. No guarding or rebound. No evidence of tenderness throughout. Skin: Warm, dry with normal turgor. Normal color with no rashes, no lesions, and no evidence of cellulitis. MS/ Extremity: Pulses equal, no cyanosis. Neurovascular intact. Full, normal range of motion. Neuro: Awake and alert, GCS 15, oriented to person, place, time, and situation. Cranial nerves II-XII grossly intact. Motor strength 5/5 in all extremities. Sensory grossly intact. Cerebellar exam normal. Normal gait. Psych: Awake, alert, with orientation to person, place and time. Behavior, mood, and affect are within normal limits. 14:32 Back: pt would like 5 in surgical site sutures removed. Discussed with pt that he would need to return to his Surgeon for removal. Edges well approximated, no evidence of infection. Pt completed course of abx and was unable to return to [place] for removal. Vital Signs: 12:10 BP 140 / 93; Pulse 65; Resp 17; Temp 98.2; Pulse Ox 97% ; Weight 105.23 kg; Pain 0/10; ll1 MDM: 13:16 Patient medically screened. snw 14:34 Data reviewed: vital signs, nurses notes. Data interpreted: Pulse oximetry: on room air snw is 97 %. Interpretation: normal. Response to treatment: There is no appreciated change of the patient's symptoms at this time. Special discussion: Based on the history and exam findings, there is no indication for further emergent testing or inpatient evaluation. I discussed with the patient/guardian the need to see the plastic surgeon for further evaluation of the symptoms. Administered Medications: No medications were administered Disposition: 09/02 06:35 Co-signature as Attending Physician, Daniel Schulte MD I agree with the assessment and kdr plan of care. Disposition: 09/01/20 13:24 Discharged to Home. Impression: Encounter for screening, unspecified. - Condition is Stable. - Discharge Instructions: Sutured Wound Care. - Medication Reconciliation Form, Thank You Letter, Antibiotic Education, Prescription Opioid Use form. - Follow up: Private Physician; When: 2 - 3 days; Reason: Recheck today's complaints, Continuance of care, Re-evaluation by your physician. Signatures: Daniel Schulte MD MD kdr Ceci Abraham, GLASSWARE SELECTOR-C GLASSWARE SELECTOR-Csnw Shreya Dougherty RN RN ss Joanna Balderas RN RN ll1 Corrections: (The following items were deleted from the chart) 09/01 13:53 13:24 09/01/2020 13:24 Discharged to Home. Impression: Encounter for screening, ss unspecified. Condition is Stable. Forms are Medication Reconciliation Form, Thank You Letter, Antibiotic Education, Prescription Opioid Use. Follow up: Private Physician; When: 2 - 3 days; Reason: Recheck today's complaints, Continuance of care, Re-evaluation by your physician. snw
[2020-09-01 15:07] VITALS: BP 140/93; TEMP 98.2; O2SAT 97
== END 2020-09-01 13:53 | disposition home or self-care (01) ==
LOC: ER 11:48
DX: Z48.02 Encounter for removal of sutures (principal)
CPT/HCPCS: 99281

== ENCOUNTER 2024-10-30 07:49 | Inpatient (IN) | payer OTHER, SELFPAY ==
--- OUTSIDE RECORDS SUMMARY | 2024-10-30 07:51 | XMS REPORT | Clinical Summary ---
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
[2024-10-30] MEDS ORDERED: LEVALBUTEROL 1.25 MG/3 ML NEB ONE ×2 (08:10→12:46)
[2024-10-30 08:23] LABS: Absolute Basophils 0.1 K/uL (0-0.5); Absolute Eosinophils 0.1 K/uL (0-0.5); Absolute Lymphocytes (CBC) 1.6 K/uL (0.7-4.9); Absolute Monocytes 1.4 K/uL (0.1-1.3); Absolute Neutrophil 12.6 K/uL (1.8-8.0); Basophils % 0.5 % (0-1.3); Eosinophils % 0.4 % (0-4.4); Hematocrit 43.5 % (39.6-49.0); Hemoglobin 13.8 g/dL (13.6-17.9); Lymphocytes % 10.3 % (15.3-44.8); MCH 21.1 pg (27.0-35.0); MCHC 31.7 g/dL (32.0-36.0); MCV 66.5 fL (80-100); MPV 8.7 fL (7.6-11.3); Monocytes % 8.8 % (3.3-12.3); Nucleated Red Blood Cells % 0.2 % (0-0); Platelets 316 thou/uL (152-406); RBC Red Blood Cell Count 6.54 M/uL (4.33-5.43); Red Cell Distribution Width 15.7 % (12.1-15.2)
[2024-10-30 08:24] LABS: PT Prothrombin Time 12.1 SECONDS (9.4-12.5); Protime INR 1.08
[2024-10-30] MEDS ORDERED: METHYLPREDNISOLONE 125 MG INJ ONE (08:34)
[2024-10-30] MEDS ORDERED: dilTIAZem HCL 25 MG/5 ML VIAL IV ONE (08:35)
[2024-10-30] MEDS ORDERED: MAGNESIUM SULFATE 1 gm IVPB 1 GM/100 ML BAG IV ONE (08:36)
[2024-10-30 08:37] LABS: Albumin 2.6 g/dL (3.4-5.0); Albumin/Globulin Ratio 0.7 (1.1-1.8); Anion Gap 8.2 mEq/L (5.0-15.0); Bilirubin Direct 0.3 mg/dL (0-0.2); Bilirubin Total 1.3 mg/dL (0.2-1.0); Globulin 3.8 g/dL (2.3-3.5); Potassium 4.2 mEq/L (3.5-5.1); Protein, Total 6.4 g/dL (6.4-8.2); Troponin High Sensitivity 42.4 pg/mL (<58.9)
--- NOTE | 2024-10-30 09:30 | RAD REPORT ---
EXAMINATION: ONE VIEW CHEST XR CLINICAL INDICATION: Cough;Dyspnea TECHNIQUE: Frontal chest projection is submitted. Examination is limited by patient positioning and t echnique. COMPARISON: 06/21/2012 FINDINGS: Moderate to significant bibasilar lung opacities are present, greater on the right, which may represe nt pneumonia. Trace bilateral pleural effusions. The heart is mildly enlarged in size. No displaced fractures identified.
--- NOTE | 2024-10-30 09:40 | EDPHYS ---
Physician Documentation [facility] Name: Sidney Calle Age: 69 yrs Sex: Male : 1955 Arrival Date: 10/30/2024 Time: 07:49 Bed 15 Private MD: ED Physician Gurjit Kulkarni HPI: 10/30 07:59 This 69 yrs old Male presents to ER via EMS with complaints of sob. rn 07:59 The patient has shortness of breath at rest, with light activity. Onset: The rn symptoms/episode began/occurred 2 day(s) ago. Duration: The symptoms are intermittent. The patient's shortness of breath is aggravated by exertion, light activity. Severity of symptoms: At their worst the symptoms were moderate in the emergency department the symptoms are unchanged. The patient has not experienced similar symptoms in the past. Patient reports shortness of breath with palpitations for the last 2 days. No fever or chills. Does report productive cough. No history of DVT or PE. No trauma. Reports mainly dyspnea but does feel little chest discomfort. No radiation of pain. No abdominal pain.. Historical: - Allergies: 07:52 No Known Allergies; bp - PMHx: 07:52 Bipolar disorder; Hypertension; Diabetes mellitus; bp - Immunization history:: Adult Immunizations up to date. - Infectious Disease History:: Denies. - Social history:: Smoking status: Patient reports the use of cigarette tobacco products, unknown amount. - Family history:: not pertinent. - Hospitalizations: : No recent hospitalization is reported. ROS: 07:59 Constitutional: Negative for fever, chills, and weight loss, Neck: Negative for injury, rn pain, and swelling, Cardiovascular: Positive for chest pain and palpitations Respiratory: Positive for shortness of breath and cough Abdomen/GI: Negative for abdominal pain, nausea, vomiting, diarrhea, and constipation, Back: Negative for injury and pain, MS/Extremity: Negative for injury and deformity, Neuro: Positive for generalized weakness Exam: 07:59 Constitutional: This is a well developed, well nourished patient who is awake, alert, rn staff to bathroom in room without assistance, mild tachypnea noted Head/Face: Normocephalic, atraumatic. Cardiovascular: Tachycardic, irregular Respiratory: Mild to moderate tachypnea, no retractions, speaking in 5 word sentences Abdomen/GI: Soft, nontender MS/ Extremity: No edema or cyanosis Neuro: Awake and alert, GCS 15 11:33 ECG was reviewed by the Attending Physician. rn Vital Signs: 07:51 BP 150 / 80; Pulse 65; Resp 24; Temp 98; Pulse Ox 91% on R/A; Weight 103 kg; Height 6 bp ft. 3 in. ; 09:02 BP 125 / 75; Pulse 73; Resp 29; Pulse Ox 94% ; Weight 97.52 kg; bp 09:49 BP 134 / 95; Pulse 118; Resp 20; Pulse Ox 90% on R/A; bp 11:44 BP 129 / 102; Pulse 116; Resp 16; Pulse Ox 97% ; iw 07:51 Body Mass Index 28.38 (97.52 kg, 190.5 cm) bp MDM: 07:54 Medical Screening Exam initiated rn 09:38 Differential diagnosis: Myocardial Infarction pneumonia, Pneumothorax pulmonary edema, rn New onset A-fib with RVR. Data reviewed: vital signs, nurses notes, lab test result(s), EKG, radiologic studies, plain films, and as a result, I will admit patient. Consideration of Admission/Observation Patient was admitted/placed on observation. Escalation of care including admission/observation considered. Counseling: I had a detailed discussion with the patient and/or guardian regarding the historical points, exam findings, and any diagnostic results supporting the discharge/admit diagnosis, lab results, radiology results, the need for further work-up and treatment in the hospital. ED course: I personally spent 35 minutes engaged in work directly related to the individual patient's care. This does not include any time spent performing procedures. The patient has been deemed critically ill because of new onset A-fib RVR requiring IV rate control, dyspnea and COPD exacerbation and organization of admission to hospital.. 10/30 07:54 Order name: Basic Metabolic Panel; Complete Time: 09:11 rn 10/30 07:54 Order name: CBC with Diff; Complete Time: 14:16 rn 10/30 07:54 Order name: LFT's; Complete Time: 09:11 rn 10/30 07:54 Order name: Magnesium; Complete Time: 09: rn 10/30 07:54 Order name: NT PRO-BNP; Complete Time: 09: rn 10/30 07:54 Order name: PT-INR; Complete Time: 09:11 rn 1218 07:54 Order name: Troponin HS; Complete Time: 09:11 rn 1218 09:36 Order name: Blood Culture Adult (2) rn 18 09:36 Order name: Lactate w/ 2H reflex if indic.; Complete Time: 14:16 rn 12/18 09:36 Order name: Ptt, Activated; Complete Time: 14:16 rn 1218 10:08 Order name: Basic Metabolic Panel; Complete Time: 14:16 EDKS 10/30 10:08 Order name: CBC with Automated Diff; Complete Time: 14:16 EDMS 18 10:08 Order name: Protime (+INR); Complete Time: 14:16 EDKS 12 10:08 Order name: PTT, Activated Partial Thromb; Complete Time: 14:16 EDKS 18 10:09 Order name: CBC Smear Scan; Complete Time: 14:16 EDMS 1218 11:33 Order name: Procalcitonin; Complete Time: 14:16 EDKS 12 11:44 Order name: SARS-COV-2 Antigen Rapid; Complete Time: 14:16 EDKS 18 11:45 Order name: Influenza Screen (A ; Complete Time: 14:16 EDKS 18 11:45 Order name: Respiratory Syncytial Virus Ag; Complete Time: 14:16 EDKS 18 12:01 Order name: CBC Smear Scan; Complete Time: 14:16 EDKS 18 07:54 Order name: XRAY Chest (1 view); Complete Time: 09:36 rn 18 07:54 Order name: EKG; Complete Time: 07:55 rn 10/30 07:54 Order name: Cardiac monitoring; Complete Time: 08:12 rn 18 07:54 Order name: EKG - Nurse/Tech; Complete Time: 08:12 rn 18 07:54 Order name: IV Saline Lock; Complete Time: 08:12 rn 18 07:54 Order name: Labs collected and sent; Complete Time: 08:12 rn /18 07:54 Order name: O2 Per Protocol; Complete Time: 08:12 rn 18 07:54 Order name: O2 Sat Monitoring; Complete Time: 08:12 rn 18 09:36 Order name: IV Saline Lock - Large Bore; Complete Time: 09:37 rn 10/30 09:36 Order name: Vital Signs; Complete Time: :37 rn EC:33 Rate is 123 beats/min. Rhythm is irregularly irregular. QRS Carson is Normal. QRS rn interval is normal. QT interval is normal. No Q waves. T waves are Normal. No ST changes noted. Clinical impression: Atrial Fibrillation. Interpreted by me. Reviewed by me. Administered Medications: 08:14 Drug: Levalbuterol Inhalation 1.25 mg Inhalation once Route: Inhalation; bp 08:30 Drug: Diltiazem IVP 20 mg IVP once; Over 2 Minutes Route: IVP; Site: left forearm; bp 10:56 Follow up: Response: No adverse reaction iw 08:30 Drug: Magnesium Sulfate IVPB 1 grams IVPB once over 1 hrs Route: IVPB; Infused Over: 1 bp hrs; Site: left forearm; 10:56 Follow up: IV Status: Completed infusion iw 08:30 Drug: MethylPrednisoLONE IVP 125 mg IVP once Route: IVP; Site: left forearm; bp 10:56 Follow up: Response: No adverse reaction iw 10:30 Drug: Rocephin IV 1 grams IV at calculated rate once; Given slow IV push per pharmacy iw instructions Route: IV; Rate: calculated rate; Site: left antecubital; 11:46 Follow up: IV Status: Completed infusion iw 10:30 Drug: Zithromax IVPB 500 mg IVPB once over 1 hrs; mix in 250 mL NS Route: IVPB; Infused iw Over: 1 hrs; Site: left antecubital; 11:46 Follow up: IV Status: Completed infusion iw 10:55 Drug: Enoxaparin Sub-Q 1 mg/kg Sub-Q once Route: Sub-Q; Site: right lower abdomen; iw 11:45 Follow up: Response: No adverse reaction iw Disposition: 09:39 Critical Care:. 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 Total time: 35 minutes rn Signatures: Dispatcher [employer] ANALIA [place] Yudelka Sharee Monaco RN RN iw Nieto, Roman, MD MD rn Peltier, Brian, WENDY NGUYEN bp Corrections: (The following items were deleted from the chart) 09:39 Telemetry/MedSurg (Inpatient) rn iw 09:39 rn iw 14:24 11:44 [facility] ER HOLD iw bd 14:24 11:44 ERHOLD- iw bd
--- NOTE | 2024-10-30 09:40 | ER ---
Nurse's Notes [facility] Name: Sidney Calle Age: 69 yrs Sex: Male : 1955 Arrival Date: 10/30/2024 Time: 07:49 Bed 15 Private MD: Diagnosis: Persistent atrial fibrillation-with RVR;Pneumonia, unspecified organism;COPD/ Chronic obstructive pulmonary disease with acute lower respiratory infection Presentation: 10/30 07:51 Chief complaint: EMS states: CHEST TIGHTNESS x36 HR. Coronavirus screen: At this time, bp the client does not indicate any symptoms associated with coronavirus-19. Ebola Screen: No symptoms or risks identified at this time. Initial Sepsis Screen: Does the patient meet any 2 criteria? No. Patient's initial sepsis screen is negative. Does the patient have a suspected source of infection? No. Patient's initial sepsis screen is negative. Risk Assessment: Do you want to hurt yourself or someone else? Patient reports no desire to harm self or others. Onset of symptoms is unknown. Care prior to arrival: Medication(s) given: ASA, 81 mg, x 4. 07:51 Method Of Arrival: EMS: [facility] bp 07:51 Acuity: GAVIN 3 bp Triage Assessment: 07:52 General: Appears in no apparent distress. Behavior is calm, cooperative, appropriate bp for age. Pain: Complains of pain in chest. EENT: No deficits noted. Neuro: No deficits noted. Cardiovascular: Rhythm is sinus rhythm. Respiratory: No deficits noted. GI: No signs and/or symptoms were reported involving the gastrointestinal system. : No signs and/or symptoms were reported regarding the genitourinary system. Derm: No deficits noted. Musculoskeletal: No deficits noted. Historical: - Allergies: 07:52 No Known Allergies; bp - PMHx: 07:52 Bipolar disorder; Hypertension; Diabetes mellitus; bp - Immunization history:: Adult Immunizations up to date. - Infectious Disease History:: Denies. - Social history:: Smoking status: Patient reports the use of cigarette tobacco products, unknown amount. - Family history:: not pertinent. - Hospitalizations: : No recent hospitalization is reported. Screenin:53 [facility] ED Fall Risk Assessment (Adult) History of falling in the last 3 months, bp including since admission No falls in past 3 months (0 pts) Confusion or Disorientation No (0 pts) Intoxicated or Sedated No (0 pts) Impaired Gait No (0 pts) Mobility Assist Device Used No (0 pt) Altered Elimination No (0 pt) Score/Fall Risk Level 0 - 2 = Low Risk Oriented to surroundings. Abuse screen: Denies threats or abuse. Denies injuries from another. Nutritional screening: No deficits noted. Tuberculosis screening: No symptoms or risk factors identified. Assessment: 07:53 General: Appears in no apparent distress. Behavior is calm, cooperative, appropriate bp for age. Pain: Pain does not radiate. Pain began 2-3 days ago. 09:03 Reassessment: No changes from previously documented assessment. Patient is alert, bp oriented x 3, equal unlabored respirations, skin warm/dry/pink. 14:44 Reassessment: REPORT FAXED FOR ICU7. bp Vital Signs: 07:51 BP 150 / 80; Pulse 65; Resp 24; Temp 98; Pulse Ox 91% on R/A; Weight 103 kg; Height 6 bp ft. 3 in. ; 09:02 BP 125 / 75; Pulse 73; Resp 29; Pulse Ox 94% ; Weight 97.52 kg; bp 09:49 BP 134 / 95; Pulse 118; Resp 20; Pulse Ox 90% on R/A; bp 11:44 BP 129 / 102; Pulse 116; Resp 16; Pulse Ox 97% ; iw 07:51 Body Mass Index 28.38 (97.52 kg, 190.5 cm) bp ED Course: 07:51 Patient arrived in ED. bp 07:52 Triage completed. bp 07:52 Arm band placed on. bp 07:53 Patient has correct armband on for positive identification. Provided Education on: N/A. bp Client placed on continuous cardiac and pulse oximetry monitoring. NIBP monitoring applied. quality assurance monitor chassis on. Pulse ox on. NIBP on. 07:53 Patient maintains SpO2 saturation greater than 95% on room air. bp 07:54 Gurjit Kulkarni MD is Attending Physician. rn 08:05 Initial lab(s) drawn, by me, sent to lab. Inserted saline lock: 20 gauge in left db antecubital area, using aseptic technique. Blood collected. Flushed with 10 mL NS. 08:12 Ignacio Braun, RN is Primary Nurse. bp 08:45 XRAY Chest (1 view) In Process Unspecified. EDMS 09:39 Tim Eulalia is Hospitalizing Provider. rn 11:45 No provider procedures requiring assistance completed. Patient admitted, IV remains in iw place. Administered Medications: 08:14 Drug: Levalbuterol Inhalation 1.25 mg Inhalation once Route: Inhalation; bp 08:30 Drug: Diltiazem IVP 20 mg IVP once; Over 2 Minutes Route: IVP; Site: left forearm; bp 10:56 Follow up: Response: No adverse reaction iw 08:30 Drug: Magnesium Sulfate IVPB 1 grams IVPB once over 1 hrs Route: IVPB; Infused Over: 1 bp hrs; Site: left forearm; 10:56 Follow up: IV Status: Completed infusion iw 08:30 Drug: MethylPrednisoLONE IVP 125 mg IVP once Route: IVP; Site: left forearm; bp 10:56 Follow up: Response: No adverse reaction iw 10:30 Drug: Rocephin IV 1 grams IV at calculated rate once; Given slow IV push per pharmacy iw instructions Route: IV; Rate: calculated rate; Site: left antecubital; 11:46 Follow up: IV Status: Completed infusion iw 10:30 Drug: Zithromax IVPB 500 mg IVPB once over 1 hrs; mix in 250 mL NS Route: IVPB; Infused iw Over: 1 hrs; Site: left antecubital; 11:46 Follow up: IV Status: Completed infusion iw 10:55 Drug: Enoxaparin Sub-Q 1 mg/kg Sub-Q once Route: Sub-Q; Site: right lower abdomen; iw 11:45 Follow up: Response: No adverse reaction iw Medication: 07:53 VIS not applicable for this client. bp Outcome: 09:39 Decision to Hospitalize by Provider. rn 11:45 Admitted to ER Hold. Please see [facility] for further documentation. iw 11:45 Condition: stable 11:45 Instructed on the need for admit, 15:37 Patient left the ED. bp Signatures: Dispatcher [employer] EDW[place] Sharee Gomez RN RN iw Gurjit Kulkarni MD MD rn Peltier, Brian, RN RN bp Benton, Danielle, RN RN db Corrections: (The following items were deleted from the chart) 09:49 09:02 BP 125 / 75; Pulse 73bpm; Resp 29bpm; Pulse Ox 94%; bp bp 12:50 07:51 BP 150 / 80; Pulse 65bpm; Resp 24bpm; Pulse Ox 91% RA; Temp 98F; bp bp
[2024-10-30] MEDS ORDERED: ACETAMINOPHEN 500 MG TAB PO PRN (10:00)
[2024-10-30] MEDS ORDERED: ONDANSETRON 4 MG/2 ML VIAL IV PRN (10:00)
[2024-10-30] MEDS ORDERED: MAGNESIUM HYDROXIDE 8% 30 ML PO PRN (10:00)
[2024-10-30] MEDS ORDERED: CEFTRIAXONE 1000 MG/VIAL ONE (10:04)
[2024-10-30] MEDS ORDERED: NA CHLORIDE 0.9% 250 ML ONE (10:05)
[2024-10-30] MEDS ORDERED: ENOXAPARIN 100 MG/ML SYR SQ ONE (10:05)
[2024-10-30] MEDS ORDERED: AZITHROMYCIN 500 MG INJ IVPB ONE (10:05)
[2024-10-30 10:08] LABS: Anisocytosis 1+; Blood Morphology Comment NOTED (NOT SEEN); Hypochromasia 1+; Microcytosis 1+; Platelet Estimate ADEQ; White Blood Cell Scan OK (OK)
[2024-10-30 10:09] LABS: Ovalocytes SLIGHT; Target Cells FEW
[2024-10-30] MEDS ORDERED: D10W 125 ML IV PRN ×2 (10:16→13:06)
[2024-10-30] MEDS ORDERED: GLUCAGON 1 MG/VIAL IM PRN ×2 (10:16→13:06)
--- NOTE | 2024-10-30 10:21 | P.HP ---
Certification for Inpatient Patient admitted to: Inpatient With expected LOS: >2 Midnights <Ana Neil - Last Filed: 10/30/24 16:28> Patient History Date of Service: 10/30/24 Reason for admission: Acute respiratory distress 2/2 community acquired pneumonia History of Present Illness: Sidney Calle is a 69 year old male with PMHX HTN, DM, and bipolar disorder who presents to the ED with chief complaint of Chest pain, cough, and shortness of breath for two days. Chest xray reports "Moderate to significant bibasilar lung opacities are present, greater on the right, which may represent pneumonia. Trace bilateral pleural effusions. The heart is mildly enlarged in size. No displaced fractures identified." On evaluation, he is on Room air with 94% oxygen saturation, lung sounds with expiratory wheezing, Respiratory rate 18, HR 99, in no acute distress, lethargic. Sidney reports not seeing a doctor for many years as he has not been sick. Laboratory evaluation significant for WBC 15.8, sodium 133, serum glucose 228, BNP 6488, T. bili 1.3, direct bili 0.3, indirect bili 1.0. Sidney will be admitted to hospitalist service for further evaluation and treatment of Acute respiratory distress 2/2 community acquired pneumonia. - Past Medical/Surgical History Diabetic: No -: Bipolar disorder -: Hypertension -: Diabetes mellitus Past Surgical History: Patient denies surgical history - Social History Smoking Status: Never smoker Alcohol use: Yes CD- Drugs: Yes Caffeine use: Yes <Ana Neil - Last Filed: 10/30/24 16:28> Date of Service: 10/30/24 <MICAH Dumont - Last Filed: 10/30/24 17:18> Allergies No Known Allergies Allergy (Unverified 12/14/11 00:35) Home Medications: Amox Tr/Potassium Clavulanate [Augmentin 875-125 Tablet] 1 tab PO BID #14 tablet 12/14/11 Hydrocodone/Acetaminophen [Vicodin 5-500 Tablet] 1 - 2 tab PO Q4HP PRN #30 tablet 12/14/11 Review of Systems Respiratory: Cough, Shortness of Breath, SOB with Excertion Cardiovascular: Chest Pain, Palpitations <Ana Neil - Last Filed: 10/30/24 16:28> Physical Examination - Physical Exam General: In no apparent distress, Oriented x3, Other (lethargic) HEENT: Atraumatic, Normocephalic, PERRLA Neck: Supple, 2+ carotid pulse no bruit, JVD not distended Respiratory: Normal air movement, Expiratory wheezes Cardiovascular: No edema, Normal pulses, Normal S1 S2, Irregular heart rate/rhythm (Afib) Capillary refill: <2 Seconds Gastrointestinal: Normal bowel sounds, Soft and benign, Non-distended, No tenderness Musculoskeletal: No clubbing Integumentary: No rashes Neurological: Normal speech, Normal tone - Studies Laboratory Data (last 24 hrs) 10/30/24 10/30/24 10/30/24 08:05 08:05 08:05 WBC 15.80 H Hgb 13.8 Hct 43.5 Plt Count 316 PT 12.1 INR 1.08 Sodium 133 L Potassium 4.2 BUN 7 Creatinine 0.66 L Glucose 228 H Magnesium 2.0 Total Bilirubin 1.3 H AST 26 ALT 39 Alkaline Phosphatase 78 <Ana Neil - Last Filed: 10/30/24 16:28> - Studies Laboratory Data (last 24 hrs) 10/30/24 10/30/24 10/30/24 08:05 08:05 08:05 WBC 15.80 H Hgb 13.8 Hct 43.5 Plt Count 316 PT 12.1 INR 1.08 Sodium 133 L Potassium 4.2 BUN 7 Creatinine 0.66 L Glucose 228 H Magnesium 2.0 Total Bilirubin 1.3 H AST 26 ALT 39 Alkaline Phosphatase 78 <MICAH Dumont - Last Filed: 10/30/24 17:18> Assessment and Plan - Plan Assessment and Plan Acute respiratory distress 2/2 community acquired pneumonia Leukocytosis -Chest xray reports "Moderate to significant bibasilar lung opacities are present, greater on the right, which may represent pneumonia. Trace bilateral pleural effusions. The heart is mildly enlarged in size. No displaced fractures identified." -WBC 15.8 -Diltiazem, magnesium, steroids IV, and lovenox given in the ED -Rocephin IV -Duonebs -Follow blood cultures -Procalcitonin pending -RSV, influenza, COVID pending -HOB elavated, isolation cart New onset Atrial fibrillation with RVR Congestive heart failure -continuous telemetry, admit to ICU -BNP 6488 -lasix BID -monitor I and O -Metoprolol 5 mg IV Q6hr PRN for heart rate >120, hold for SBP < 100 -ECHO Diabete Mellitus with hyperglycemia -Accucheck with SSI -Serum glucose 228 -Hypoglycemia protocol in place -A1C pending Elevated Bilirubin -T bili 1.3, Direct bili 0.3, indirect bili 1.0 -Monitor in AM labs History of Bipolar disorder History of HTN -continue home medications when appropriate DVT ppx SCD Full code LOS 2 days Discharge Plan: Home Plan to discharge in: 48 Hours - Advance Directives Does patient have a Living Will: No Does patient have a Durable POA for Healthcare: No <Ana Neil - Last Filed: 10/30/24 16:28> - Plan Clinically more consistent with acute decompensated heart failure with bilateral pleural effusion with pulmonary edema and new onset atrial fibrillation with rapid ventricular response, I will obtain procalcitonin level, started on IV furosemide, assessed response to diuretics, order transthoracic echocardiogram, fir rate control for A-fib, I will order scheduled dose of metoprolol 25 mg p.o. every 6 hour and IV metoprolol 5 mg as needed, hypoglycemia secondary to uncontrolled type 2 diabetes, I will start him on a 0.25 unit Lantus daily plus moderate insulin sliding scale, order hemoglobin A1c. He is in serious condition, necessary for ICU admission given his multiple comorbidities and very symptomatic heart failure.. <MICAH Dumont - Last Filed: 10/30/24 17:18>
[2024-10-30 10:52] LABS: Absolute Lymphocytes (CBC) 0.6 K/uL (0.7-4.9); Absolute Monocytes 0.5 K/uL (0.1-1.3); Absolute Neutrophil 15.1 K/uL (1.8-8.0); Basophils % 0.3 % (0-1.3); Eosinophils % 0.2 % (0-4.4); Hematocrit 43.6 % (39.6-49.0); Hemoglobin 13.7 g/dL (13.6-17.9); Lymphocytes % 3.9 % (15.3-44.8); MCH 20.9 pg (27.0-35.0); MCHC 31.4 g/dL (32.0-36.0); MCV 66.6 fL (80-100); MPV 8.6 fL (7.6-11.3); Monocytes % 3.3 % (3.3-12.3); Neutrophils % 92.3 % (41.7-73.7); Nucleated Red Blood Cells % 0.1 % (0-0); Platelets 307 thou/uL (152-406); RBC Red Blood Cell Count 6.54 M/uL (4.33-5.43); Red Cell Distribution Width 15.9 % (12.1-15.2)
[2024-10-30 10:56] LABS: PT Prothrombin Time 11.8 SECONDS (9.4-12.5); PTT, Activated Partial Thromb 30.9 SECONDS (24.3-36.9); Protime INR 1.06
[2024-10-30 11:00] LABS: Anion Gap 8.4 mEq/L (5.0-15.0); Potassium 4.4 mEq/L (3.5-5.1)
[2024-10-30 11:44] LABS: SARS-CoV-2 Antigen CONTROL BLUE LINE VIS/BG OK; SARS-CoV-2 Antigen Rapid Res Negative (Negative)
[2024-10-30 12:00] LABS: Blood Morphology Comment NOTED (NOT SEEN); Platelet Estimate ADEQ; White Blood Cell Scan OK (OK)
[2024-10-30 12:01] LABS: Hypochromasia 1+; Microcytosis 1+; Polychromasia SLIGHT
[2024-10-30] MEDS ORDERED: IPRATROPIUM BROM 0.5MG/2.5ML ONE (12:45)
[2024-10-30] MEDS: IPRATROPIUM BROM 0.5MG/2.5ML NEB SCH (12:50)
[2024-10-30] MEDS: LEVALBUTEROL 0.63 MG/3 ML NEB NEB SCH (12:52)
[2024-10-30] MEDS ORDERED: LEVALBUTEROL 0.63 MG/3 ML NEB ONE (12:52)
[2024-10-30] MEDS: FLU (Fluarix Triv) TS24-25(6MOS UP)/PF 45 MCG/0.5 ML Syringe IM ONE (13:45)
[2024-10-30] MEDS: PNEUMOCOCCAL VACCINE 0.5 ML IMVAC ONE (14:00)
[2024-10-30] MEDS: FUROSEMIDE 40 MG/4 ML VIAL IV SCH (16:06)
[2024-10-30] MEDS: METOPROLOL TARTRATE 5 MG/5 ML INJ IV PRN (16:06)
[2024-10-30] MEDS: INSULIN REGULAR (HUMAN) 100 UNIT/ML SQ SCH (16:07)
[2024-10-30] MEDS: METOPROLOL TAR 25 MG TAB PO SCH (17:13)
[2024-10-30] MEDS: INSULIN GLARGINE 100 UNIT/ML SQ SCH (17:13)
[2024-10-30] MEDS: MORPHINE 2 MG/ML SYR IV PRN (20:28)
[2024-10-30] MEDS: ZOLPIDEM TARTRATE 5 MG TABLET PO PRN (20:29)
[2024-10-30] MEDS: DOXYCYCLINE 100 MG CAP PO SCH (20:29)
[2024-10-30] MEDS: CODEINE 30MG/APAP 300MG TAB PO PRN (23:55)
[2024-10-31 05:56] LABS: Anion Gap 7.8 mEq/L (5.0-15.0); Potassium 3.8 mEq/L (3.5-5.1)
[2024-10-31] MEDS: CEFTRIAXONE 1,000 MG in NA CHLORIDE 0.9% 50 ML IVPB SCH (08:16)
[2024-10-31] MEDS: ENOXAPARIN 40 MG/0.4 ML SQ SCH (08:17)
--- NOTE | 2024-10-31 10:03 | RAD REPORT ---
EXAMINATION: CT CHEST WITHOUT CONTRAST CLINICAL INDICATION: SOB TECHNIQUE: Routine CT scan of the chest without intravenous contrast. One or more of the following do se reduction techniques were used: Automated exposure control, adjustment of the mA and/or kV according to patient size, and/or iterative reconstruction. Unless otherwise specified, incidental fi ndings do not require dedicated imaging follow-up. COMPARISON: 10/30/2024 FINDINGS: LOWER NECK: Visualized thyroid gland and soft tissues are normal. LUNGS: Areas of airspace opacity are present in both upper lobes. Moderate atelectasis is present in both lung bases. PLEURA: Moderate bilateral pleural effusions. MEDIASTINUM AND LYMPH NODES: No mediastinal mass or fluid collection. Normal size mediastinal, hilar, and axillary lymph nodes. OSSEOUS STRUCTURES AND CHEST WALL: Old right anterolateral rib fractures. UPPER ABDOMEN: 5 cm cyst posterior right kidney. IMPRESSION: Bilateral airspace opacities are seen favoring pneumonia. Moderate bilateral pleural effusions with a telectasis in both lung bases. Examination limited by lack of IV contrast.
--- NOTE | 2024-10-31 10:27 | P.PN ---
Subjective Date of Service: 10/31/24 Chief Complaint: Acute respiratory distress 2/2 community acquired pneumonia Subjective: Improving Patient says he is feeling much better, able to sleep for the first time in a few days, now able to lie flat Urine output 2.6 L over the past 12 hours, denied any productive cough or fever or chill. Review of Systems Other: Consitutional; fever(-), chills (-), rigor(-), night sweat(-), unintentional weight loss(-), malaise (-) HEENT; diplopia (-), rhinorrhea (-), epistaxis (-), otorrhea (-), otalgia (-) Respiratory; shortness of breath (+), wheezing (-), cough (-), sputum (-), pleuritic chest pain (-) Cardiovascular; chest pain (-), peripheral edema (-), paroxysmal nocturnal dyspnea (+), orthopnea (+) Gastrointestinal; nausea (-), vomiting (-), abdominal pain (-), diarrhea (-), constipation (-), melena (-), hematochezia (-) Genitourinary; urinary frequency (-), dysuria (-), urgency (-), flank pain (-), gross hematuria (-), incontinence (-) Skin; rash (-), 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 General: Looks much better at this morning, in no apparent distress,. HEENT: Normocephalic, atraumatic, nonicteric sclera, nonanemic conjunctive. Neck: Supple, without JVD or goiter or thyroid mass. Respiratory: Normal breathing effort, decreased breath sound up to one third of from lung bases, fine crackle but no wheezing or rhonchi. Cardiovascular: Irregularly irregular rate and rhythm,. Gastrointestinal: Normal bowel sounds, nondistended, nontender, No ascites, , No masses, no hepatosplenomegaly. Extremities : No clubbing, No peripheral edema, full range of motion, no deformity, no muscle atrophy. Integumentary: No rashes, petechia, suspected lesions. Lymphatics: No axilla or cervical lymphadenopathy. Neurology; alert awake oriented x3, no focal neurologic deficit, normal affection . mood and behavior. Assessment And Plan - Plan This is a 69 years old gentleman with past medical history notable for type 2 diabetes, chronic back pain who presented to emergency room for progressive shortness of breath for the past 1 week and admitted in MICU #1 acute hypoxic respiratory failure secondary to #2 Good oxygenation on room air, supplemental oxygen by nasal cannula as needed #2 bilateral pleural effusion and pulmonary edema due to new onset heart failure Chest x-ray and CT of the chest I ordered this morning personally reviewed large bilateral pleural effusion, bilateral consolidation, clinically rapid response to IV furosemide, serum procalcitonin level is normal, N-terminal proBNP over 3000, clinically compatible with heart failure rather than pneumonia I will increase the IV furosemide to 40 mg every 8 hour, discontinue empiric antibiotics, awaiting transthoracic echocardiogram results. #3 new onset atrial fibrillation with rapid ventricular response Still in atrial fibrillation, but heart rate under under control with scheduled oral metoprolol and IV metoprolol as needed, I will increased oral metoprolol to 50 mg every 6 hour, 200 mg a day, Olu Vascor is 4, I will start anticoagulant with apixaban #4 uncontrolled type 2 diabetes Severe hypoglycemia is improving, continue Lantus 25 unit, 0.25 unit/kg, moderate dose corrective insulin, hemoglobin A1c ordered, still pending #4 chronic back pain Pain control with oral and IV morphine, I will add lidocaine patch DVT prophylaxis apixaban Disposition; plan to downgrade in a couple of days if patient continued to improve.
--- NOTE | 2024-10-31 11:28 | EKG ---
Test Date: 2024-10-30 Test Time: 08:08:51 Lace Sewer: BP MEASUREMENT RESULTS: Intervals: Rate: 123 [place]: QRSD: 94 QT: 302 QTc: 432 [place]: P: [place]: QRS: 79 T: 37 INTERPRETIVE STATEMENTS: Atrial fibrillation with rapid ventricular response Nonspecific T wave abnormality Abnormal ECG Compared to ECG 12/13/2011 05:26:59 T-wave abnormality now present Sinus bradycardia no longer present Electronically Signed On 10-31-24 11:27:40 [employer] L[employer]ATION [employer] by López Marr
[2024-10-31] MEDS: METOPROLOL TAR 50 MG TAB PO SCH (11:36)
--- NOTE | 2024-10-31 12:29 | ECHO ---
HEIGHT: 6 ft 3 in WEIGHT: 227 lb 1.218 oz DATE OF STUDY: 10/30/[address]: MICAH Dumont MD 2-DIMENSIONAL: YES M.MODE: YES DOPPLER: YES COLOR FLOW: YES TDS: NO PORTABLE: YES DEFINITY: NO BUBBLE STUDY: NO DIAGNOSIS: NEW ONSET ATRIAL FIBRILLATION CARDIAC HISTORY: CATHERIZATION: NO SURGERY: NO PROSTHETIC VALVE: NO PACEMAKER: NO MEASUREMENTS (cm) DIASTOLIC (NORMALS) SYSTOLIC (NORMALS) IVSd 1.0 (0.6-1.2) LA Diam 2.6 (1.9-4.0) LVEF 25-30% LVIDd 5.0 (3.5-5.7) LVIDs 4.2 (2.0-3.5) %FS 15% LVPWd 1.3 (0.6-1.2) Ao Diam 3.2 (2.0-3.7) 2 DIMENSIONAL ASSESSMENT: RIGHT ATRIUM: NORMAL LEFT ATRIUM: MILDLY DILATED RIGHT VENTRICLE: NORMAL LEFT VENTRICLE: NORMAL TRICUSPID VALVE: INSUFFICIENT TRICUSPID REGURGITATION MITRAL VALVE: NORMAL PULMONIC VALVE: NORMAL AORTIC VALVE: NORMAL PERICARDIAL EFFUSION: NONE AORTIC ROOT: NORMAL LEFT VENTRICULAR WALL MOTION: SEVERE GLOBAL HYPOKINESIS. DOPPLER/COLOR FLOW: DIASTOLIC DYSFUNCTION. COMMENTS: 1. SEVERELY REDUCED LEFT VENTRICULAR SYSTOLIC FUNCTION. LEFT VENTRICULAR EJECTION FRACTION 25-30%. SEVERE GLOBAL HYPOKINESIS. 2. DIASTOLIC DYSFUNCTION. 3. ELEVATED FILLING PRESSURE. RIGHT ATRIAL PRESSURE 15-20 mmHg. TECHNOLOGIST: IMANI KENNY
[2024-10-31] MEDS: FUROSEMIDE 40 MG/4 ML VIAL IV SCH (15:06)
[2024-10-31] MEDS: APIXABAN 5 MG TABLET PO SCH (20:08)
[2024-11-01 05:44] LABS: Absolute Basophils 0.1 K/uL (0-0.5); Absolute Eosinophils 0.1 K/uL (0-0.5); Absolute Monocytes 1.5 K/uL (0.1-1.3); Absolute Neutrophil 12.2 K/uL (1.8-8.0); Basophils % 0.4 % (0-1.3); Eosinophils % 0.5 % (0-4.4); Hemoglobin 12.6 g/dL (13.6-17.9); Lymphocytes % 12.4 % (15.3-44.8); MCH 20.6 pg (27.0-35.0); MCHC 30.8 g/dL (32.0-36.0); MCV 66.7 fL (80-100); MPV 8.5 fL (7.6-11.3); Monocytes % 9.7 % (3.3-12.3); Platelets 325 thou/uL (152-406); RBC Red Blood Cell Count 6.15 M/uL (4.33-5.43); Red Cell Distribution Width 15.7 % (12.1-15.2)
[2024-11-01 06:18] LABS: Albumin 2.4 g/dL (3.4-5.0); Albumin/Globulin Ratio 0.6 (1.1-1.8); Bilirubin Total 0.5 mg/dL (0.2-1.0); Globulin 3.7 g/dL (2.3-3.5); Phosphorus 3.9 mg/dL (2.5-4.9); Protein, Total 6.1 g/dL (6.4-8.2)
[2024-11-01] MEDS: SPIRONOLACTONE 25 MG TABLET PO SCH (08:06)
[2024-11-01] MEDS: SACUBITRIL/VALSARTAN 49/51 MG TAB PO SCH (08:06)
--- NOTE | 2024-11-01 10:38 | P.PN ---
Subjective Date of Service: 11/01/24 Chief Complaint: Acute respiratory distress 2/2 community acquired pneumonia Subjective: Improving Patient stated he is continue to get better, no more orthopnea and paroxysmal nocturnal dyspnea, able to sleep but his back pain came back, minimal cough, no phlegm, denied any chest pain. Patient admitted that he used to drink a lot of alcohol. Review of Systems Other: Consitutional; fever(-), chills (-), rigor(-), night sweat(-), unintentional weight loss(-), malaise (-) HEENT; diplopia (-), rhinorrhea (-), epistaxis (-), otorrhea (-), otalgia (-) Respiratory; shortness of breath (+), wheezing (-), cough (+), sputum (-), pleuritic chest pain (-) Cardiovascular; chest pain (-), peripheral edema (+), paroxysmal nocturnal dyspnea (-), orthopnea (-) Gastrointestinal; nausea (-), vomiting (-), abdominal pain (-), diarrhea (-), constipation (-), melena (-), hematochezia (-) Genitourinary; urinary frequency (-), dysuria (-), urgency (-), flank pain (-), gross hematuria (-), incontinence (-) Skin; 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 General: Looks much better at this morning, in no apparent distress,. HEENT: Normocephalic, atraumatic, nonicteric sclera, nonanemic conjunctive. Neck: Supple, without JVD or goiter or thyroid mass. Respiratory: Normal breathing effort, decreased breath sound up to one third of from lung bases, fine crackle but no wheezing or rhonchi. Cardiovascular: Irregularly irregular rate and rhythm,. Gastrointestinal: Normal bowel sounds, nondistended, nontender, No ascites, , No masses, no hepatosplenomegaly. Extremities : No clubbing, No peripheral edema, full range of motion, no deformity, no muscle atrophy. Integumentary: No rashes, petechia, suspected lesions. Lymphatics: No axilla or cervical lymphadenopathy. Neurology; alert awake oriented x3, no focal neurologic deficit, normal affection . mood and behavior. Assessment And Plan - Plan This is a 69 years old gentleman with past medical history notable for type 2 diabetes, chronic back pain who presented to emergency room for progressive shortness of breath for the past 1 week and admitted in MICU #1 acute hypoxic respiratory failure secondary to #2 Good oxygenation on room air, supplemental oxygen by nasal cannula as needed #2 bilateral pleural effusion and pulmonary edema due to new onset heart failure Continue to improve, urine output 3.4 L over the past 24-hour, I will cut down furosemide to 40 mg every 12 hour Chest x-ray and CT of the chest I large bilateral pleural effusion, bilateral consolidation, clinically rapid response to IV furosemide, serum procalcitonin level is normal, N-terminal proBNP over 3000, clinically compatible with heart failure rather than pneumonia #3 acute decompensated heart failure with reduced ejection fraction Transthoracic echocardiogram result reviewed, severe global hypokinesia kinesia, left ventricle ejection fraction 75 to 30%, diastolic dysfunction, I will add 50 Entresto, 25 mg spironolactone today, no SGLT2 inhibitor is available at this facility #3 new onset atrial fibrillation with rapid ventricular response Still in atrial fibrillation, but heart rate at target on 200 mg oral metoprolol, I will continue current dose and IV metoprolol as needed, Olu Vascor is 4, anticoagulant with apixaban #4 uncontrolled type 2 diabetes Severe hyperglycemia is improving, continue Lantus 25 unit, 0.25 unit/kg, moderate dose corrective insulin, hemoglobin A1c ordered, still pending #4 chronic back pain Pain control with oral and IV morphine as well as lidocaine patch DVT prophylaxis apixaban Disposition; plan to downgrade on the weekend if patient continued to improve.
[2024-11-01] MEDS: LIDOCAINE 4% PATCH TOP SCH (12:05)
[2024-11-01] MEDS ORDERED: LEVALBUTEROL 0.63 MG/3 ML NEB NEB PRN (13:55)
[2024-11-01] MEDS: FUROSEMIDE 40 MG/4 ML VIAL IV SCH (20:40)
[2024-11-01 22:12] VITALS: BMI 26.9
[2024-11-02] MEDS: METOPROLOL TAR 50 MG TAB PO SCH ×2 (09:00→20:34)
--- NOTE | 2024-11-02 10:39 | P.PN ---
Subjective Date of Service: 11/02/24 Chief Complaint: Acute respiratory distress 2/2 community acquired pneumonia Subjective: Improving Patient states that he is feeling better this morning ready to go home, denied any cough and orthopnea with paroxysmal nocturnal dyspnea, but complaining of shortness of breath on exertion Review of Systems Other: Consitutional; fever(-), chills (-), rigor(-), night sweat(-), unintentional weight loss(-), malaise (-) HEENT; diplopia (-), rhinorrhea (-), epistaxis (-), otorrhea (-), otalgia (-) Respiratory; shortness of breath on exertion (+), wheezing (-), cough (-), sputum (-), pleuritic chest pain (-) Cardiovascular; chest pain (-), peripheral edema (-), paroxysmal nocturnal dyspnea (-), orthopnea (-) Gastrointestinal; nausea (-), vomiting (-), abdominal pain (-), diarrhea (-), constipation (-), melena (-), hematochezia (-) Genitourinary; urinary frequency (-), dysuria (-), urgency (-), flank pain (-), gross hematuria (-), incontinence (-) Skin; 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 General: Looks much better at this morning, in no apparent distress,. HEENT: Normocephalic, atraumatic, nonicteric sclera, nonanemic conjunctive. Neck: Supple, without JVD or goiter or thyroid mass. Respiratory: Normal breathing effort, clear breath sound bilaterally with mild decreased breath sounds at lung bases no wheezing or rhonchi. Cardiovascular: Irregularly irregular rate and rhythm,. Gastrointestinal: Normal bowel sounds, nondistended, nontender, No ascites, , No masses, no hepatosplenomegaly. Extremities : No clubbing, No peripheral edema, full range of motion, no deformity, no muscle atrophy. Integumentary: No rashes, petechia, suspected lesions. Lymphatics: No axilla or cervical lymphadenopathy. Neurology; alert awake oriented x3, no focal neurologic deficit, normal affection . mood and behavior. Assessment And Plan - Plan This is a 69 years old gentleman with past medical history notable for type 2 diabetes, chronic back pain who presented to emergency room for progressive shortness of breath for the past 1 week and admitted in MICU #1 acute hypoxic respiratory failure secondary to #2 Good oxygenation on room air, supplemental oxygen by nasal cannula as needed #2 bilateral pleural effusion and pulmonary edema due to new onset heart failure Continue to improve, urine output 1.8 L over the past 24-hour, patient is nearly euvolemic I will change IV to oral furosemide 40 mg once a day Chest x-ray and CT of the chest I large bilateral pleural effusion, bilateral c onsolidation, clinically rapid response to IV furosemide, serum procalcitonin level is normal, N-terminal proBNP over 3000, clinically compatible with heart failure rather than pneumonia, I will order follow-up chest x-ray and CBC, BMP tomorrow morning. 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 Transthoracic echocardiogram result reviewed, severe global hypokinesia kinesia, left ventricle ejection fraction 75 to 30%, diastolic dysfunction, I will continue 50 Entresto, 25 mg spironolactone today, no SGLT2 inhibitor is available at this facility #3 new onset atrial fibrillation with rapid ventricular response Still in atrial fibrillation, but heart rate at target with heart rate around 60/min I will titrate down to 50 mg metoprolol titrate to twice daily , and IV metoprolol as needed, Olu Vascor is 4, anticoagulant with apixaban #4 uncontrolled type 2 diabetes Severe hyperglycemia is improving, continue Lantus 25 unit, 0.25 unit/kg, moderate dose corrective insulin, hemoglobin A1c ordered, still pending #4 chronic back pain Pain control with oral and IV morphine as well as lidocaine patch DVT prophylaxis apixaban Disposition; she was downgraded to medical floor November 01, plan to discharge home tomorrow per patient request although I was planning on coronary angiogram once patient is euvolemia
[2024-11-02] MEDS: FUROSEMIDE 40 MG TABLET PO SCH (16:18)
[2024-11-03 06:20] LABS: Hematocrit 40.8 % (39.6-49.0); Hemoglobin 12.6 g/dL (13.6-17.9); MCH 20.6 pg (27.0-35.0); MCHC 30.9 g/dL (32.0-36.0); MCV 66.8 fL (80-100); MPV 8.4 fL (7.6-11.3); Platelets 316 thou/uL (152-406); Red Cell Distribution Width 15.6 % (12.1-15.2)
[2024-11-03 06:34] LABS: Anion Gap 9.2 mEq/L (5.0-15.0); Potassium 4.2 mEq/L (3.5-5.1)
--- NOTE | 2024-11-03 07:04 | RAD REPORT ---
EXAMINATION: TWO VIEW CHEST XR CLINICAL INDICATION: Follow-up on pulmonary edema and bilateral pleural TECHNIQUE: 2 views of the chest was performed. COMPARISON: 10/30/2024, 06/21/2012 FINDINGS: The lungs are hyperexpanded suggesting COPD. Bibasilar lung opacities are seen posteriorly with small bilateral pleural effusions. Overall, findings do appear improved significantly since 10/30/2024 the heart is upper limit of normal in size. No displaced fractures evident. IMPRESSION: Significant improvement in lung aeration seen since 10/30/2024 prior study.
[2024-11-03 08:09] LABS: Platelet Estimate ADEQ; White Blood Cell Scan OK (OK)
[2024-11-03 08:10] LABS: Blood Morphology Comment NOTED (NOT SEEN); Microcytosis 1+
[2024-11-03 08:57] VITALS: BP 121/69
--- NOTE | 2024-11-03 09:03 | P.DS ---
Admission Date: 10/30/24 Discharge Date: 11/03/24 Disposition: ROUTINE DISCHARGE Discharge Condition: GOOD Reason for Admission: Acute respiratory distress 2/2 community acquired pneumonia Brief History of Present Illness: This is a 69 years old gentleman with past medical history notable for type 2 diabetes, chronic back pain, history of alcohol abuse who presented to emergency room for progressive shortness of breath for the past 1 week and noted to have new onset atrial fibrillation with rapid ventricular response, bilateral pulmonary infiltrates on chest x-ray and admitted in MICU Hospital Course: Patient manifestation was consistent with new onset acute heart failure with bilateral pleural effusion and pulmonary edema, newly diagnosed atrial fibrillation with rapid ventricle response. Patient was treated with IV furosemide, IV and oral metoprolol. The patient responded to treatment very well and his symptoms significant improved with aggressive diuresis. Transthoracic echocardiogram confirmed heart failure with reduced ejection fraction, clinically compatible with alcoholic dilated cardiomyopathy. Guideline directed medications were initiated. He was started on anticoagulation with apixaban as well. Patient was transferred to general medical floor on November 01. Patient continued to improve, follow-up chest x- ray revealed nearly complete resolution of bilateral infiltration. His uncontrolled diabetes was managed with basal and insulin sliding scale. Patient is anxious to go home during holiday. He is to to follow-up with cardiology for coronary angiogram to look for ischemic cardiomyopathy and further titration of guideline directed medication. #1 acute hypoxic respiratory failure secondary to #2 , Resolved, treated with nasal cannula. #2 bilateral pleural effusion and pulmonary edema due to new onset heart failure associated with #3 IV furosemide switch over to oral furosemide Chest x-ray and CT of the chest large bilateral pleural effusion, bilateral consolidation, serum procalcitonin level is normal, N-terminal proBNP over 6000 on admission, down to 900 at discharge #3 acute decompensated heart failure with reduced ejection fraction, likely alc oholic dilated cardiomyopathy Transthoracic echocardiogram result reviewed, severe global hypokinesia kinesia, left ventricle ejection fraction 75 to 30%, diastolic dysfunction, 50 Entresto, 25 mg spironolactone started, no SGLT2 inhibitor is available at this facility #3 new onset atrial fibrillation with rapid ventricular response Still in atrial fibrillation, but heart rate at target on oral metoprolol [id number] score is 4, anticoagulanted with apixaban #4 uncontrolled type 2 diabetes Severe hyperglycemia improved on Lantus 25 unit, moderate dose corrective insulin, hemoglobin A1c ordered still pending at the time of discharge #4 chronic back pain Pain control with oral and IV morphine as well as lidocaine patch Vital Signs/Physical Exam: Temp Pulse Resp BP Pulse Ox 98.8 F 83 18 121/69 95 11/03/24 04:00 11/03/24 08:56 11/03/24 04:33 11/03/24 08:56 11/03/24 04:33 Other Physical/Emotional Findings: - Physical Exam. General: in no apparent distress,. HEENT: Normocephalic, atraumatic, nonicteric sclera, nonanemic conjunctive. Neck: Supple, without JVD or goiter or thyroid mass. Respiratory: Normal breathing effort, clear breath sound no wheezing or rhonchi or crackle. Cardiovascular: Irregularly irregular rate and rhythm,. Gastrointestinal: Normal bowel sounds, nondistended, nontender, No ascites, , No masses, no hepatosplenomegaly. Extremities : No clubbing, No peripheral edema, full range of motion, no deformity, no muscle atrophy. Integumentary: No rashes, petechia, suspected lesions. Lymphatics: No axilla or cervical lymphadenopathy. Neurology; alert awake oriented x3, no focal neurologic deficit, normal affection . mood and behavior. Laboratory Data at Discharge: WBC 8.50 thou/uL (4.3-10.9) 11/03/24 05:50 Hgb 12.6 g/dL (13.6-17.9) L 11/03/24 05:50 Hct 40.8 % (39.6-49.0) 11/03/24 05:50 Plt Count 316 thou/uL (152-406) 11/03/24 05:50 PT 11.8 SECONDS (9.4-12.5) 10/30/24 10:40 INR 1.06 10/30/24 10:40 APTT 30.9 SECONDS (24.3-36.9) 10/30/24 10:40 Sodium 135 mEq/L (136-145) L 11/03/24 05:50 Potassium 4.2 mEq/L (3.5-5.1) 11/03/24 05:50 BUN 20 mg/dL (7-18) H 11/03/24 05:50 Creatinine 0.70 mg/dL (0.70-1.30) 11/03/24 05:50 Glucose 247 mg/dL (74-106) H 11/03/24 05:50 Phosphorus 3.9 mg/dL (2.5-4.9) 11/01/24 05:23 Magnesium 2.0 mg/dL (1.6-2.4) 11/01/24 05:23 Total Bilirubin 0.5 mg/dL (0.2-1.0) 11/01/24 05:23 AST 22 U/L (15-37) 11/01/24 05:23 ALT 33 U/L (16-61) 11/01/24 05:23 Alkaline Phosphatase 70 U/L (45-117) 11/01/24 05:23 Home Medications: RX: Hydrocodone/Acetaminophen [Vicodin 5-500 Tablet] 1 - 2 tab PO Q4HP PRN #30 tablet 12/14/11 Dapagliflozin Propanediol [Dapagliflozin] 10 mg PO DAILY #30 11/03/24 RX: Apixaban [Eliquis] 5 mg PO BID #60 11/03/24 RX: Codeine/APAP [Tylenol #3*] 1 tab PO Q4H PRN tab 11/03/24 RX: Furosemide [Lasix*] 40 mg PO DAILY #30 tab 11/03/24 RX: Lidocaine 4% Patch [Lidoderm 5% Patch*] 1 patch TOP DAILY #15 pat 11/03/24 RX: Metformin ER [Glucophage ER*] 1,000 mg PO BID #30 tab.sa 11/03/24 RX: Metoprolol Tartrate [Lopressor*] 50 mg PO BID #60 tab 11/03/24 RX: Sacubitril/Valsartan [Entresto 49 mg-51 mg Tablet] 1 tab PO BID #60 tab 11/03/24 RX: Spironolactone [Aldactone*] 12.5 mg PO DAILY #30 tab 11/03/24 New Medications: RX: Spironolactone [Aldactone*] 12.5 mg PO DAILY #30 tab Dapagliflozin Propanediol [Dapagliflozin] 10 mg PO DAILY #30 RX: Apixaban [Eliquis] 5 mg PO BID #60 RX: Sacubitril/Valsartan [Entresto 49 mg-51 mg Tablet] 1 tab PO BID #60 tab RX: Metformin ER [Glucophage ER*] 1,000 mg PO BID #30 tab.sa RX: Furosemide [Lasix*] 40 mg PO DAILY #30 tab RX: Lidocaine 4% Patch [Lidoderm 5% Patch*] 1 patch TOP DAILY #15 pat RX: Metoprolol Tartrate [Lopressor*] 50 mg PO BID #60 tab Physician Discharge Instructions: PROBLEM: COPD Exacerbation/Congested Heart Failure GOAL: Clear understanding of disease process INSTRUCTIONS: Follow up with Cardiology in 7-10 days, call office for appointment Follow up with primary care Doctor in 1-2 weeks, call office for appointment Please return to ER if symptoms worsen Call 2nd floor nurses station [phone] , for any concerns regarding your stay or medications. Take prescriptions to your Pharmacy and take as directed. Diet: ADA Activity: As tolerated Diet: ADA Activity: Ad paula Followup: NONE,NONE [Primary Care Provider] - López Marr MD [ACTIVE - CAN ADMIT] -
[2024-11-03 09:55] VITALS: TEMP 97.5
[2024-11-03 12:14] VITALS: O2SAT 97
--- NOTE | 2024-11-04 11:12 | EKG ---
Test Date: 2024-10-30 Test Time: 15:46:11 Intelligence Agent: GERALDINE MEASUREMENT RESULTS: Intervals: Rate: 113 [place]: QRSD: 88 QT: 342 QTc: 469 [place]: P: [place]: QRS: 52 T: 180 INTERPRETIVE STATEMENTS: Atrial flutter with variable AV block Nonspecific T wave abnormality Abnormal ECG Compared to ECG 10/30/2024 08:08:51 Atrial fibrillation no longer present T-wave abnormality still present Electronically Signed On 11-04-24 11:08:12 MAORI PHYSIOTHERAPIST by López Marr
== END 2024-11-03 11:38 | disposition home or self-care (01) | DRG 314 ==
LOC: ER 07:49 → ERHOLD 10:00 → 3RD-ICU 15:01 → 2ND 11-01 18:24
PROVIDERS: ADMIT Internal Medicine; ATTEND Internal Medicine
DX: I42.6 Alcoholic cardiomyopathy (principal); I50.23 Acute on chronic systolic (congestive) heart failure; J96.01 Acute respiratory failure with hypoxia; I48.19 Other persistent atrial fibrillation; J44.1 Chronic obstructive pulmonary disease with (acute) exacerbation; I11.0 Hypertensive heart disease with heart failure; E11.65 Type 2 diabetes mellitus with hyperglycemia; E11.649 Type 2 diabetes mellitus with hypoglycemia without coma; F31.9 Bipolar disorder, unspecified; E80.7 Disorder of bilirubin metabolism, unspecified; G89.29 Other chronic pain; M54.9 Dorsalgia, unspecified; F17.210 Nicotine dependence, cigarettes, uncomplicated; Z11.52 Encounter for screening for COVID-19; Z79.899 Other long term (current) drug therapy
CPT/HCPCS: 36415; 71045; 71046; 71250; 80048; 80053; 80076; 82947; 83036; 83605; 83735; 83880; 84100; 84145; 84484; 85025; 85027; 85610; 85730; 87040; 87804; 87807; 87811; 93005; 93306; 94640; 96372; 99285; J0696; J1650; J1940; J2003; J2270; J2919; J3475; J7050; J7614; J7644